=== PATIENT | male | born 2000 | race Caucasian/White ===

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

== ENCOUNTER 2018-10-18 03:59 | Observation (INO) | payer OTHER ==
[~2018-10-18] VITALS: Ht 177.8 cm; Wt 117.9 kg
[~2018-10-18 03:59] MED LIST changes: +ONDA8TAB13 PO
[2018-10-18] MEDS ORDERED: fentaNYL INJECTION 100 MCG/2 ML AMP IVP STA ×2 (04:09→04:46)
[2018-10-18] MEDS ORDERED: NS IV 1000 ML 1,000 ML IV STA (04:09)
[2018-10-18] MEDS ORDERED: KETOROLAC 30 MG/ML VIAL IVP STA (04:09)
[2018-10-18] MEDS ORDERED: ALBU2.5V4 NEB (04:10)
[2018-10-18] MEDS ORDERED: ONDANSETRON 4 MG/2 ML (SDV) Z0FRAN IVP ONE (04:15)
--- NOTE | 2018-10-18 04:15 | ED GU-Male ---
General Chief Complaint: -Male Stated Complaint: BACK PAIN Source: patient Exam Limitations: no limitations History of Present Illness Date Seen by Provider: Oct 18, 2018 Time Seen by Provider: 04:04 Initial Comments Here with report of right flank pain that started 1 hour ago and has persisted. He states he couldn't get comfortable. He realized that this felt like when he has kidney stone on the left and went ahead and came in for evaluation. Does report multiple with urination. Reports nausea but no vomiting or diarrhea. Denies fevers. Timing/Duration: this morning Severity/Quality: moderate, severe, aching, cramping Location: right flank Radiation: none Activities at Onset: sleep Prior Genitourinary Problems: similar symptoms Associated Symptoms: No abdominal pain, No dysuria, No fever/chills; lower back pain, nausea/vomiting; No urinary frequency Allergies and Home Medications Allergies Coded Allergies: NKANo Known Allergies (Verified Allergy, Unknown, 03/21/06) Patient Home Medication List Home Medication List Reviewed: Yes Review of Systems Review of Systems Constitutional: see HPI; No chills, No fever EENTM: no symptoms reported Respiratory: No cough, No short of breath Cardiovascular: no symptoms reported Gastrointestinal: No diarrhea; nausea; No vomiting Genitourinary: denies dysuria; flank pain Musculoskeletal: no symptoms reported Skin: no symptoms reported Past Cojdvpu-Xujpoo-Cijgga Hx Past Med/Social Hx: Reviewed Nursing Past Med/Soc Hx Patient Social History Alcohol Use: Denies Use Recreational Drug Use: No Smoking Status: Never a Smoker Recent Foreign Travel: No Contact w/Someone Who Travel: No Recent Hopitalizations: No Immunizations Up To Date Tetanus Booster (TDap): Less than 5yrs Date of Influenza Vaccine: Jul 14, 2016 Seasonal Allergies Seasonal Allergies: No Past Medical History Surgeries: Yes (lithotripsy) Respiratory: Yes Asthma, Chronic Bronchitis Cardiac: No Neurological: No Kidney Stones Gastrointestinal: No Musculoskeletal: No Endocrine: No Cancer: No Psychosocial: Yes (OCD) Blood Disorders: No Family Medical History Reviewed Nursing Family Hx No Pertinent Family Hx Physical Exam Vital Signs Vital Signs - First Documented 10/18/18 04:00 Temp 97.2 Pulse 64 Resp 18 B/P (MAP) 133/80 (97) Pulse Ox 98 O2 Delivery Room Air Capillary Refill : Height, Weight, BMI Height: 5'10.00" Weight: 260lbs. oz. 117.341099oa; 35.15 BMI Method:Stated General Appearance: WD/WN, no apparent distress Neck: full range of motion, supple Cardiovascular: regular rate, rhythm, no murmur Respiratory: lungs clear, normal breath sounds Gastrointestinal: non tender, soft Back: no vertebral tenderness, CVA tenderness (R); No CVA tenderness (L), No muscle spasm Extremities: normal range of motion, non-tender Neurologic/Psychiatric: alert, oriented x 3 Skin: normal color, warm/dry Progress/Results/Core Measures Suspected Sepsis SIRS Temperature: Pulse: Respiratory Rate: Laboratory Tests 10/18/18 04:20: White Blood Count 8.5 Blood Pressure / Mean: Laboratory Tests 10/18/18 04:20: Creatinine 0.84, Platelet Count 290, Total Bilirubin 0.3 Results/Orders Lab Results Laboratory Tests Test 10/18/18 04:15 10/18/18 04:20 Range/Units Urine Color YELLOW Urine Clarity CLEAR Urine pH 6 5-9 Urine Specific [place] 1.025 H 1.016-1.022 Urine Protein 2+ H NEGATIVE Urine Glucose (UA) NEGATIVE NEGATIVE Urine Ketones 1+ H NEGATIVE Urine Nitrite NEGATIVE NEGATIVE Urine Bilirubin NEGATIVE NEGATIVE Urine Urobilinogen NORMAL NORMAL MG/DL Urine Leukocyte Esterase 1+ H NEGATIVE Urine RBC (Auto) 5+ H NEGATIVE Urine RBC 2-5 H /HPF Urine WBC 0-2 /HPF Urine Squamous Epithelial Cells 0-2 /HPF Urine Crystals NONE /LPF Urine Bacteria TRACE /HPF Urine Casts NONE /LPF Urine Mucus MODERATE H /LPF Urine Culture Indicated NO White Blood Count 8.5 4.3-11.0 10^3/uL Red Blood Count 5.42 4.35-5.85 10^6/uL Hemoglobin 14.7 13.3-17.7 G/DL Hematocrit 44 40-54 % Mean Corpuscular Volume 80 80-99 FL Mean Corpuscular Hemoglobin 27 25-34 PG Mean Corpuscular Hemoglobin Concent 34 32-36 G/DL Red Cell Distribution Width 13.1 10.0-14.5 % Platelet Count 290 130-400 10^3/uL Mean Platelet Volume 10.0 7.4-10.4 FL Neutrophils (%) (Auto) 48 42-75 % Lymphocytes (%) (Auto) 39 12-44 % Monocytes (%) (Auto) 9 0-12 % Eosinophils (%) (Auto) 3 0-10 % Basophils (%) (Auto) 1 0-10 % Neutrophils # (Auto) 4.1 1.8-7.8 X 10^3 Lymphocytes # (Auto) 3.3 1.0-4.0 X 10^3 Monocytes # (Auto) 0.8 0.0-1.0 X 10^3 Eosinophils # (Auto) 0.3 0.0-0.3 10^3/uL Basophils # (Auto) 0.0 0.0-0.1 10^3/uL Sodium Level 140 135-145 MMOL/L Potassium Level 3.5 L 3.6-5.0 MMOL/L Chloride Level 105 98-107 MMOL/L Carbon Dioxide Level 24 21-32 MMOL/L Anion Gap 11 5-14 MMOL/L Blood Urea Nitrogen 12 7-18 MG/DL Creatinine 0.84 0.60-1.30 MG/DL Estimat Glomerular Filtration Rate > 60 BUN/Creatinine Ratio 14 Glucose Level 100 70-105 MG/DL Calcium Level 9.3 8.5-10.1 MG/DL Corrected Calcium 9.1 8.5-10.1 MG/DL Total Bilirubin 0.3 0.1-1.0 MG/DL Aspartate Amino Transf (AST/SGOT) 20 5-34 U/L Alanine Aminotransferase (ALT/SGPT) 30 0-55 U/L Alkaline Phosphatase 62 40-136 U/L Total Protein 7.4 6.4-8.2 GM/DL Albumin 4.3 3.2-4.5 GM/DL My Orders Orders - ELSIE ARRIAZA MD Cbc With Automated Diff (10/18/18 04:09) Comprehensive Metabolic Panel (10/18/18 04:09) Ua Culture If Indicated (10/18/18 04:09) Ct Abd/Pelvis Wo(Kidney Stone) (10/18/18 04:09) Saline Lock/Iv-Start (10/18/18 04:09) Fentanyl Injection (Sublimaze Injection (10/18/18 04:09) Ketorolac Injection (Toradol Injection) (10/18/18 04:09) Ondansetron Injection (Zofran Injectio (10/18/18 04:15) Ns Iv 1000 Ml (Sodium Chloride 0.9%) (10/18/18 04:09) Fentanyl Injection (Sublimaze Injection (10/18/18 04:46) Hydromorphone Injection (Dilaudid Inject (10/18/18 05:35) Abdomen/Kub 1view (10/18/18 05:47) Medications Given in ED Current Medications Medications Dose Ordered Sig/Radha Route Start Time Stop Time Status Last Admin Dose Admin Ondansetron HCl 4 mg ONCE ONCE IVP 10/18/18 04:15 10/18/18 04:16 DC 10/18/18 04:20 4 MG Vital Signs/I&O 10/18/18 10/18/18 10/18/18 04:00 04:20 04:21 Temp 97.2 97.2 97.2 Pulse 64 Resp 18 B/P (MAP) 133/80 (97) Pulse Ox 98 O2 Delivery Room Air Capillary Refill : Progress Note : Progress Note Seen and evaluated. IV, labs, UA, CT abdomen and pelvis kidney stone protocol, fentanyl 50 g IV, Toradol 30 mg IV and normal saline 1 L bolus ordered. Zofran 4 mg IV for nausea. Monitor patient. Repeat fentanyl 75 g IV for continued pain. 0540: Pain has returned and is worse again. Dilaudid 1 mg IV. I discussed the case with Dr. Salgado. He is recommending admission with pain control and fluids. We will keep nothing by mouth. Rocephin 1 g IV. 0545: I did discuss the case with Dr. Laird who accepts patient for admission, observation status with Dr. Salgado on consult. Patient and family agree with plan. Pain a little better after Dilaudid. Diagnostic Imaging Diagonstic Imaging: CT Plain Films/CT/US/NM/MRI: abdomen, pelvis Comments 3 mm calculus right proximal ureter just below the UPJ with mild fullness of the right renal collecting system. Bilateral nephrolithiasis. Departure Communication (Admissions) Time/Spoke to Admitting Phy: 05:45 Time/Spoke to Consulting Phy: 05:40 Impression Primary Impression: Right ureteral stone Disposition: ADMITTED INPATIENT Condition: Stable Admissions Decision to Admit Reason: Admit from ER (General) Decision to Admit/Date: Oct 18, 2018 Time/Decision to Admit Time: 05:40 Departure-Patient Inst. Referrals: JENNA BRUNO MD (PCP/Family) Primary Care Physician ELSIE ARRIAZA MD Oct 18, 2018 04:15
[2018-10-18 04:19] LABS: BILIRUBIN,URINE NEGATIVE (NEGATIVE); CLARITY,URINE CLEAR; COLOR,URINE YELLOW; GLUCOSE, URINE (UA) NEGATIVE (NEGATIVE); KETONES,URINE 1+ (NEGATIVE); LEUKOCYTE ESTERASE ,URINE 1+ (NEGATIVE); NITRITE,URINE NEGATIVE (NEGATIVE); PH,URINE 6 (5-9); PROTEIN,URINE 2+ (NEGATIVE); UROBILINOGEN,URINE NORMAL (NORMAL)
[2018-10-18 04:26] LABS: BACTERIA,URINE TRACE /HPF; SQUAMOUS EPITHELIAL CELL,UR 0-2 /HPF; WBC,URINE 0-2 /HPF
[2018-10-18 04:30] LABS: BASOPHILS % (AUTO) 1 % (0-10); EOSINOPHILS # (AUTO) 0.3 10^3/uL (0.0-0.3); EOSINOPHILS % (AUTO) 3 % (0-10); HEMATOCRIT 44 % (40-54); HEMOGLOBIN 14.7 G/DL (13.3-17.7); LYMPHOCYTES # (AUTO) 3.3 X 10^3 (1.0-4.0); LYMPHOCYTES % (AUTO) 39 % (12-44); MEAN CORPUSCULAR HEMOGLOBIN 27 PG (25-34); MEAN CORPUSCULAR HGB CONC 34 G/DL (32-36); MEAN CORPUSCULAR VOLUME 80 FL (80-99); MONOCYTES # (AUTO) 0.8 X 10^3 (0.0-1.0); MONOCYTES % (AUTO) 9 % (0-12); NEUTROPHILS # (AUTO) 4.1 X 10^3 (1.8-7.8); NEUTROPHILS % (AUTO) 48 % (42-75); PLATELET COUNT 290 10^3/uL (130-400); RED BLOOD COUNT 5.42 10^6/uL (4.35-5.85); RED CELL DISTRIBUTION WIDTH 13.1 % (10.0-14.5); WHITE BLOOD COUNT 8.5 10^3/uL (4.3-11.0)
[2018-10-18 04:46] LABS: ALANINE AMINOTRANSFERASE 30 U/L (0-55); ALBUMIN 4.3 GM/DL (3.2-4.5); ALKALINE PHOSPHATASE 62 U/L (40-136); BILIRUBIN,TOTAL 0.3 MG/DL (0.1-1.0); BUN/CREATININE RATIO 14; CALCIUM 9.3 MG/DL (8.5-10.1); CARBON DIOXIDE 24 MMOL/L (21-32); CHLORIDE 105 MMOL/L (98-107); CREATININE SERUM 0.84 MG/DL (0.60-1.30); GFR ESTIMATED > 60; GLUCOSE 100 MG/DL (70-105); POTASSIUM 3.5 MMOL/L (3.6-5.0); SODIUM 140 MMOL/L (135-145); TOTAL PROTEIN 7.4 GM/DL (6.4-8.2)
[2018-10-18] MEDS ORDERED: HYDROmorphone 2 MG/ML VIAL (DILAUDID) IV STA (05:35)
[2018-10-18] MEDS ORDERED: cefTRIAXone FOR IV USE 1,000 MG in NS (IVPB) 50 ML IV ONE (06:00)
--- OUTSIDE RECORDS SUMMARY | 2018-10-18 06:08 | XMS REPORT | Continuity of Care Document ---
Author Author [facility] Address Unknown Phone Unavailable Allergies Active Description Code Type Severity Reaction Onset Reported/Identified Relationship to Patient Clinical Status Yes NKANo Known Allergies NKA Miscellaneous Allergy Unknown N/A 03/21/2006 Medications There is no data. Problems Date Dx Coded Attending Type Code Diagnosis Diagnosed By 07/27/2010 JAIR BROWN DO 493.92 ASTHMA (ACUTE) EXACERBATION 07/27/2010 YLNN ZENDEJAS APRN 493.92 ASTHMA (ACUTE) EXACERBATION 07/27/2010 FRANSISCO MARQUES MD 493.92 ASTHMA (ACUTE) EXACERBATION 07/27/2010 MARK BARGER APRN 493.92 ASTHMA (ACUTE) EXACERBATION 07/27/2010 JAIR BROWN DO 493.92 ASTHMA (ACUTE) EXACERBATION 07/27/2010 FREDO AUGUSTIN PHD 493.92 ASTHMA (ACUTE) EXACERBATION 07/27/2010 FREDO AUGUSTIN PHD 493.92 ASTHMA (ACUTE) EXACERBATION 07/27/2010 493.92 ASTHMA (ACUTE ) EXACERBATION 07/27/2010 NETTIE ANSARI APRN 493.92 ASTHMA (ACUTE) EXACERBATION 07/27/2010 LETTY ZAIDI APRN 493.92 ASTHMA (ACUTE) EXACERBATION 07/27/2010 LAZARO VALERA, FRANSISCO E 493.92 ASTHMA (ACUTE) EXACERBATION 07/27/2010 LAZARO VALERA, FRANSISCO E 493.92 ASTHMA (ACUTE) EXACERBATION 09/07/2010 JAIR BROWN DO 465.9 UPPER RESPIRATORY INFECTION 09/07/2010 JAIR BROWN DO 493.90 ASTHMA UNSPECIFIED 09/07/2010 JAIR BROWN DO 786.2 COUGH 09/07/2010 VERITO ZENDEJAS APRNYL A 465.9 UPPER RESPIRATORY INFECTION 09/07/2010 VERITO ZENDEJAS APRNYL A 493.90 ASTHMA UNSPECIFIED 09/07/2010 VERITO ZENDEJAS APRNYL A 786.2 COUGH 09/07/2010 SHELLI MD, FRANSISCO 465.9 UPPER RESPIRATORY INFECTION 09/07/2010 SHELLI DORSEY, FRANSISCO 493.90 ASTHMA UNSPECIFIED 09/07/2010 SHELLI DORSEY, FRANSISCO 786.2 COUGH 09/07/2010 FROST CASHERO [employer]RI[employer] RETROFIT DESIGNER, MARK N 465.9 UPPER RESPIRATORY INFECTION 09/07/2010 FROST CASHERO INDUSTRIAL RETROFIT DESIGNER, MARK N 493.90 ASTHMA UNSPECIFIED 09/07/2010 FROST CASHERO INDUSTRIAL RETROFIT DESIGNER, MARK N 786.2 COUGH 09/07/2010 BROWN DO, [...] R 465.9 UPPER RESPIRATORY INFECTION 09/07/2010 ELAN INDUSTRIAL RETROFIT DESIGNER, NETTIE R 493.90 ASTHMA UNSPECIFIED 09/07/2010 ELAN INDUSTRIAL RETROFIT DESIGNER, NETTIE R 786.2 COUGH 09/07/2010 MADL INDUSTRIAL RETROFIT DESIGNER, LETTY L 465.9 UPPER RESPIRATORY INFECTION 09/07/2010 MADL INDUSTRIAL RETROFIT DESIGNER, LETTY L 493.90 ASTHMA UNSPECIFIED 09/07/2010 MADL INDUSTRIAL RETROFIT DESIGNER, LETTY L 786.2 COUGH 09/07/2010 LAZARO RN, FRANSISCO E 465.9 UPPER RESPIRATORY INFECTION 09/07/2010 LAZARO RN, FRANSISCO E 493.90 ASTHMA UNSPECIFIED 09/07/2010 LAZARO RN, FRANSISCO E 786.2 COUGH 09/07/2010 LAZARO VALERA, FRANSISCO E 465.9 UPPER RESPIRATORY INFECTION 09/07/2010 LAZARO VALERA, FRANSISCO E 493.90 ASTHMA UNSPECIFIED 09/07/2010 LAZARO VALERA, FRANSISCO E 786.2 COUGH 01/14/2012 Ot 913.4 INSECT BITE FOREARM 01/14/2012 Ot E000.8 OTHER EXTERNAL CAUSE STATUS 01/14/2012 Ot E906.4 NONVENOM ARTHROPOD BITE 07/20/2012 JAIR BROWN DO K 477.0 ALLERGIC RHINITIS DUE TO POLLEN 07/20/2012 CRISTIANA WYNN LYNN A 477.0 ALLERGIC RHINITIS DUE TO POLLEN 07/20/2012 FRANSISCO MARQUES MD 477.0 ALLERGIC RHINITIS DUE TO POLLEN 07/20/2012 MARK BARGER APRN N 477.0 ALLERGIC RHINITIS DUE TO POLLEN 07/20/2012 JAIR BROWN DO K 477.0 ALLERGIC RHINITIS DUE TO POLLEN 07/20/2012 DEMETRIA PHD, FREDO Ashton 477.0 ALLERGIC RHINITIS DUE TO POLLEN 07/20/2012 DEMETRIA MUSTAFA, FREDO Ashton 477.0 ALLERGIC RHINITIS DUE TO POLLEN 07/20/2012 477.0 ALLERGIC RHINITIS DUE TO POLLEN 07/20/2012 ELAN WYNN NETTIE R 477.0 ALLERGIC RHINITIS DUE TO POLLEN 07/20/2012 MADCINTHIA Fernandez APRNA L 477.0 ALLERGIC RHINITIS DUE TO POLLEN 07/20/2012 LAZARO VALERA, FRANSISCO E 477.0 ALLERGIC RHINITIS DUE TO POLLEN 07/20/2012 LAZARO VALERA, FRANSISCO E 477.0 ALLERGIC RHINITIS DUE TO POLLEN 09/26/2012 AISHWARYA BROWN DOA K 491.9 BRONCHITIS, CHRONIC UNSPEC 09/26/2012 AISHWARYA BROWN DOA K 786.07 WHEEZING 09/26/2012 VERITO ZENDEJAS APRNYL A 491.9 BRONCHITIS, CHRONIC UNSPEC 09/26/2012 VERITO ZENDEJAS APRNYL A 786.07 WHEEZING 09/26/2012 SHELLI DORSEY, FRANSISCO 491.9 BRONCHITIS, CHRONIC UNSPEC 09/26/2012 SHELLI DORSEY, FRANSISCO 786.07 WHEEZING 09/26/2012 MARK BARGER APRN N 491.9 BRONCHITIS, CHRONIC UNSPEC 09/26/2012 MARK BARGER APRN N 786.07 WHEEZING 09/26/2012 AISHWARYA BROWN DOA K 491.9 BRONCHITIS, CHRONIC UNSPEC 09/26/2012 BROWN AISHWARYA HEATHA K 786.07 WHEEZING 09/26/2012 DEMETRIA MUSTAFA, FREDO Ashton 491.9 BRONCHITIS, CHRONIC UNSPEC 09/26/2012 DEMETRIA MUSTAFA, FREDO Ashton 786.07 WHEEZING 09/26/2012 DEMETRIA MUSTAFA, FREDO Ashton 491.9 BRONCHITIS, CHRONIC UNSPEC 09/26/2012 DEMETRIA MUSTAFA, FREDO Ashton 786.07 WHEEZING 09/26/2012 491.9 BRONCHITIS, CHRONIC UNSPEC 09/26/2012 786.07 WHEEZING 09/26/2012 NETTIE ANSARI APRN R 491.9 BRONCHITIS, CHRONIC UNSPEC 09/26/2012 NETTIE ANSARI APRN R 786.07 WHEEZING 09/26/2012 MADL INDUSTRIAL RETROFIT DESIGNERLETTY Singh L 491.9 BRONCHITIS, CHRONIC UNSPEC 09/26/2012 CINTHIA ZAIDI APRNA L 786.07 WHEEZING 09/26/2012 LAZARO VALERA, FRANSISCO E 491.9 BRONCHITIS, CHRONIC UNSPEC 09/26/2012 LAZARO VALERA, FRANSISCO E 786.07 WHEEZING 09/26/2012 LAZARO VALERA, FRANSISCO E [...] SLIPPING, TRIPPING, OR STUMBLI 09/18/2013 SUNNY CORDOVA APRN Ot 493.90 ASTHMA, UNSPECIFIED 09/18/2013 SUNNY CORDOVA APRN Ot 786.2 COUGH 01/02/2014 MARK BARGER APRN 493.10 INTRINSIC ASTHMA UNSPECIFIED 01/02/2014 JAIR BROWN DO 493.10 ASTHMA INTRINSIC 01/02/2014 DEMETRIA MUSTAFA, FREDO Ashton 493.10 ASTHMA INTRINSIC 01/02/2014 DEMETRIA MUSTAFA, FREDO Ashton 493.10 ASTHMA INTRINSIC 01/02/2014 NETTIE ANSARI APRN 493.10 ASTHMA INTRINSIC 01/02/2014 LETTY ZAIDI APRN 493.10 ASTHMA INTRINSIC 01/02/2014 LAZARO VALERA, FRANSISCO E 493.10 ASTHMA INTRINSIC 01/02/2014 FRANSISCO WILLIS RN 493.10 ASTHMA INTRINSIC 04/16/2014 DEMETRIA MUSTAFA, FREDO Ashton 300.00 AN ANXIETY UNSPEC 04/16/2014 DEMETRIA MUSTAFA, FREDO Ashton 300.00 AN ANXIETY UNSPEC 04/16/2014 NETTIE ANSARI APRN R 300.00 AN ANXIETY UNSPEC 04/16/2014 LETTY ZAIDI APRN L 300.00 AN ANXIETY UNSPEC 04/16/2014 FRANSISCO WILLIS RN E 300.00 AN ANXIETY UNSPEC 04/16/2014 FRANSISCO WILLIS RN E 300.00 AN ANXIETY UNSPEC 07/17/2014 NETTIE ANSARI APRN R 558.9 GASTROENTERITIS NONINFECTIOUS 07/17/2014 LETTY ZAIDI APRN L 558.9 GASTROENTERITIS NONINFECTIOUS 07/17/2014 FRANSISCO WILLIS RN E 558.9 GASTROENTERITIS NONINFECTIOUS 07/17/2014 FRANSISCO WILLIS RN E 558.9 GASTROENTERITIS NONINFECTIOUS 07/25/2014 SLIM DORSEY, STEVE To Ot 599.70 HEMATURIA, UNSPECIFIED 07/25/2014 STEVE SMALLS MD Ot 719.45 JOINT PAIN-PELVIS 07/25/2014 STEVE SMALLS MD Ot 789.09 ABDOMINAL PAIN, OTHER SPECIFIED SITE 07/28/2014 LETTY ZAIDI APRN L 789.09 ABDOMINAL PAIN OTHER SPECIFIED SITE 07/28/2014 FRANSISCO WILLIS RN E 789.09 ABDOMINAL PAIN OTHER SPECIFIED SITE 07/28/2014 FRANSISCO WILLIS RN E 789.09 ABDOMINAL PAIN OTHER SPECIFIED SITE 07/29/2014 LETTY ZAIDI APRN L 590.2 KIDNEY STONES 07/29/2014 LETTY ZAIDI APRN L 591 HYDRONEPHROSIS 07/29/2014 FRANSISCO WILLIS RN E 590.2 KIDNEY STONES 07/29/2014 FRANSISCO WILLIS RN E 591 HYDRONEPHROSIS 07/29/2014 FRANSISCO WILLIS RN E 590.2 KIDNEY STONES 07/29/2014 FRANSISCO WILLIS RN E 591 HYDRONEPHROSIS 07/30/2014 RAMYA GASTON MD Ot 592.1 CALCULUS OF URETER 02/03/2017 DEJUANSHAHIDALETTY L POWER BRAKE REBUILDER Ot 592.0 CALCULUS OF KIDNEY 02/03/2017 MADCINTHIA FernandezA L POWER BRAKE REBUILDER Ot 592.1 CALCULUS OF URETER 02/03/2017 Ot [...] R10.32 LEFT LOWER QUADRANT PAIN 02/03/2017 BOYCE DO PAOLA L Ot Z87.442 PERSONAL HISTORY OF URINARY CALCULI 02/04/2017 LETTY ZAIDI POWER BRAKE REBUILDER Ot 592.0 CALCULUS OF KIDNEY 02/04/2017 LETTY ZAIDI POWER BRAKE REBUILDER Ot 592.1 CALCULUS OF URETER 02/04/2017 Ot [...] Z87.442 PERSONAL HISTORY OF URINARY CALCULI 06/05/2017 CARLI SAMUELS Ot F42.9 OBSESSIVE-COMPULSIVE DISORDER, UNSPECIFI 06/05/2017 CARLI SAMUELS Ot G43.909 MIGRAINE, UNSP, NOT INTRACTABLE, WITHOUT 06/05/2017 CARLI SAMUELS Ot J45.909 UNSPECIFIED ASTHMA, UNCOMPLICATED 06/05/2017 CARLI SAMUELS Ot R51 HEADACHE 06/05/2017 MADLLETTY L POWER BRAKE REBUILDER Ot 592.0 CALCULUS OF KIDNEY 06/05/2017 MADL, LETTY L POWER BRAKE REBUILDER Ot 592.1 CALCULUS OF URETER 06/05/2017 Ot 592.1 CALCULUS OF URETER 06/05/2017 RAMYA GASTON MD Ot 592.0 CALCULUS OF KIDNEY 06/05/2017 RAMYA GASTON MD Ot 592.1 CALCULUS OF URETER 06/05/2017 RAMYA GASTON MD Ot V72.63 PRE-PROCEDURAL LABORATORY EXAMINATION 06/05/2017 RAMYA GASTON MD Ot V74.8 SCREEN-BACTERIAL DIS NEC 01/03/2018 DEJUANSHAHIDALETTY L POWER BRAKE REBUILDER Ot 592.0 CALCULUS OF KIDNEY 01/03/2018 CINTHIA ZAIDIA L POWER BRAKE REBUILDER Ot 592.1 CALCULUS OF URETER 01/03/2018 Ot 592.1 CALCULUS OF URETER 01/03/2018 RAMYA GASTON MD Ot 592.0 CALCULUS OF KIDNEY 01/03/2018 RAMYA GASTON MD Ot 592.1 CALCULUS OF URETER 01/03/2018 RAMYA GASTON MD Ot V72.63 PRE-PROCEDURAL LABORATORY EXAMINATION 01/03/2018 RAMYA GASTON MD Ot V74.8 SCREEN-BACTERIAL DIS NEC 01/23/2018 CINTHIA ZAIDIA L POWER BRAKE REBUILDER Ot 592.0 CALCULUS OF KIDNEY 01/23/2018 DEJUAN LETTY L POWER BRAKE REBUILDER Ot 592.1 CALCULUS OF URETER 01/23/2018 Ot 592.1 CALCULUS OF URETER 01/23/2018 RAMYA GASTON MD Ot 592.0 CALCULUS OF KIDNEY 01/23/2018 RAMYA GASTON MD Ot 592.1 CALCULUS OF URETER 01/23/2018 RAMYA GASTON MD Ot V72.63 PRE-PROCEDURAL LABORATORY EXAMINATION 01/23/2018 RAMYA GASTON MD Ot V74.8 SCREEN-BACTERIAL DIS NEC Procedures Code [place] [address] NEBULIZER TREATMENT 09/26/2012 11625 OXIMETRY 08/22/2013 24140 OXIMETRY 09/18/2013 30242 OXIMETRY 02/18/2014 97877 PSYCH DIAGNOSTIC EVALUATION 04/17/2014 50181 PSYTX PT&/FAMILY 45 MINUTES 05/02/2014 UROLOGY RAMYA GASTON 07/28/2014 Results Test Result Range Complete urinalysis with reflex to culture - 02/03/17 22:30 Urine color determination JESU NRG Urine clarity determination SLIGHTLY CLOUDY NRG Urine pH measurement by test strip 7 5-9 Specific gravity of urine by test strip 1.010 1.016- 1.022 Urine protein assay by test strip, semi-quantitative [...] urinalysis with reflex to culture NO NRG Complete urinalysis with reflex to culture - 10/18/18 04:15 Urine color determination YELLOW NRG Urine clarity determination CLEAR NRG Urine pH measurement by test strip 6 5-9 Specific gravity of urine by test strip 1.025 1.016- 1.022 Urine protein assay by test strip, semi-quantitative 2+ NEGATIVE Urine glucose detection by automated test strip NEGATIVE NEGATIVE Erythrocytes detection in urine sediment by light microscopy 5+ NEGATIVE Urine ketones detection by automated test strip 1+ NEGATIVE Urine nitrite detection by test strip NEGATIVE NEGATIVE Urine total bilirubin detection by test strip NEGATIVE NEGATIVE Urine urobilinogen measurement by automated test strip (mass/volume) NORMAL NORMAL Urine leukocyte esterase detection by dipstick 1+ NEGATIVE Automated urine sediment erythrocyte count by microscopy (number/high power field) [HPF] NRG Automated urine sediment leukocyte count by microscopy (number/high power field ) [HPF] NRG Bacteria detection in urine sediment by light microscopy TRACE NRG Squamous epithelial cells detection in urine sediment by light microscopy 0-2 NRG Crystals detection in urine sediment by light microscopy NONE NRG Casts detection in urine sediment by light microscopy NONE NRG Mucus detection in urine sediment by light microscopy MODERATE NRG Complete urinalysis with reflex to culture NO NRG Complete blood count (CBC) with automated white blood cell (WBC) differential - 10/18/18 04:20 Blood leukocytes automated count (number/volume) 8.5 10*3/uL 4.3-11.0 Blood erythrocytes automated count (number/volume) 5.42 10*6/uL 4.35-5.85 Venous blood hemoglobin measurement (mass/volume) 14.7 g/dL 13.3-17.7 Blood hematocrit (volume fraction) 44 % 40-54 Automated erythrocyte mean corpuscular volume 80 [foz_us] 80-99 Automated erythrocyte mean corpuscular hemoglobin (mass per erythrocyte) 27 pg 25-34 Automated erythrocyte mean corpuscular hemoglobin concentration measurement ( mass/volume) 34 g/dL 32-36 Automated erythrocyte distribution width ratio 13.1 % 10.0-14.5 Automated blood platelet count (count/volume) 290 10*3/uL 130-400 Automated blood platelet mean volume measurement 10.0 [foz_us] 7.4-10.4 Automated blood neutrophils/100 leukocytes 48 % 42-75 Automated blood lymphocytes/100 leukocytes 39 % 12-44 Blood monocytes/100 leukocytes 9 % 0-12 Automated blood eosinophils/100 leukocytes 3 % 0-10 Automated blood basophils/100 leukocytes 1 % 0-10 Blood neutrophils automated count (number/volume) 4.1 10*3 1.8-7.8 Blood lymphocytes automated count (number/volume) 3.3 10*3 1.0-4.0 Blood monocytes automated count (number/volume) 0.8 10*3 0.0-1.0 Automated eosinophil count 0.3 10*3/uL 0.0-0.3 Automated blood basophil count (count/volume) 0.0 10*3/uL 0.0-0.1 Comprehensive metabolic panel - 10/18/18 04:20 Serum or plasma sodium measurement (moles/volume) 140 mmol/L 135-145 Serum or plasma potassium measurement (moles/volume) 3.5 mmol/L 3.6-5.0 Serum or plasma chloride measurement (moles/volume) 105 mmol/L 98-107 Carbon dioxide 24 mmol/L 21-32 Serum or plasma anion gap determination (moles/volume) 11 mmol/L 5-14 Serum or plasma urea nitrogen measurement (mass/volume) 12 mg/dL 7-18 Serum or plasma creatinine measurement (mass/volume) 0.84 mg/dL 0.60-1.30 Serum or plasma urea nitrogen/creatinine mass ratio 14 NRG Serum or plasma creatinine measurement with calculation of estimated glomerular filtration rate > NRG Serum or plasma glucose measurement (mass/volume) 100 mg/dL 70-105 Serum or plasma calcium measurement (mass/volume) 9.3 mg/dL 8.5-10.1 Serum or plasma total bilirubin measurement (mass/volume) 0.3 mg/dL 0.1-1.0 Serum or plasma alkaline phosphatase measurement (enzymatic activity/volume) 62 U/L 40-136 Serum or plasma aspartate aminotransferase measurement (enzymatic activity/ volume) 20 U/L 5-34 Serum or plasma alanine aminotransferase measurement (enzymatic activity/volume ) 30 U/L 0-55 Serum or plasma protein measurement (mass/volume) 7.4 g/dL 6.4-8.2 Serum or plasma albumin measurement (mass/volume) 4.3 g/dL 3.2-4.5 CALCIUM CORRECTED 9.1 mg/dL 8.5-10.1 Encounters ACCT No. Visit Date/Time Discharge Status Pt. Type Provider Facility Loc./Unit Complaint [id number] 09/17/2014 00:00:00 09/17/2014 23:59:59 CLS Outpatient FRANSISCO WILLIS RN [id number] 07/28/2014 13:55:00 07/28/2014 23:59:59 CLS Outpatient LETTY ZAIDI APRN [id number] 07/17/2014 13:41:00 07/17/2014 23:59:59 CLS Outpatient NETTIE ANSARI APRN [id number] 07/17/2014 00:00:00 07/17/2014 23:59:59 CLS Outpatient FRANSISCO WILLIS RN [id number] 05/02/2014 10:12:00 05/02/2014 23:59:59 CLS Outpatient DEMETRIA MUSTAFA, FREDO Ashton [id number] 04/16/2014 09:05:00 04/16/2014 23:59:59 CLS Outpatient DEMETRIA MUSTAFA, FREDO [place] [id number] 02/18/2014 11:42:00 02/18/2014 23:59:59 CLS Outpatient BROWN JAIR [id number] 01/02/2014 15:09:00 01/02/2014 23:59:59 CLS Outpatient MARGOT SANTIAGO APRN MARK N [id number] 09/18/2013 15:25:00 09/18/2013 23:59:59 CLS Outpatient FRANSISCO MARQUES MD [id number] 08/21/2013 15:23:00 08/21/2013 23:59:59 CLS Outpatient LYNN ZENDEJAS APRN [id number] 09/26/2012 09:32:00 09/26/2012 23:59:59 CLS Outpatient KEVIN HEATH JAIR K [id number] 09/26/2012 09:32:00 09/26/2012 23:59:59 CLS Outpatient [id number] 06/05/2017 10:47:00 06/05/2017 13:52:00 DIS Emergency CARLI SAMUELS [facility] ER HEAD ACHE [id number] 02/03/2017 22:02:00 02/03/2017 23:10:00 DIS Emergency PAOLA BOYCE DO [facility] ER LEFT LOWER BACK PAIN [id number] 10/13/2015 15:41:00 10/13/2015 23:59:59 CLS Outpatient SHRUTHI RESENDIZ APRN [facility] QUICK ANKLE PAIN/ SWELLING [id number] 07/30/2014 06:33:00 07/30/2014 10:15:00 DIS Outpatient RAMYA GASTON MD [facility] SDC RIGHT URETERAL STONE [id number] 07/29/2014 14:06:00 07/29/2014 23:59:59 CLS Outpatient RAMYA GASTON MD [facility] PREOP RIGHT URETERAL STONE [id number] 07/28/2014 16:33:00 07/28/2014 23:59:59 CLS Outpatient LETTY ZAIDI POWER BRAKE REBUILDER [facility] RAD ABD PAIN,FLANK PAIN [id number] 07/25/2014 04:36:00 07/25/2014 06:26:00 DIS Emergency SLIM DORSEY, STEVE To [facility] ER RT SIDE HIP PAIN [id number] 09/18/2013 12:44:00 09/18/2013 14:15:00 DIS Emergency SUNNY CORDOVA APRN [facility] ER COUGH/CONGESTION [id number] 09/06/2013 08:53:00 09/06/2013 10:08:00 DIS Emergency ROWDY DORSEY, ADALBERTO Guillen [facility] ER FALL [id number] 10/18/2018 05:45:00 ACT Inpatient KIANA DORSEY, JENNA Ashton [facility] 4TH RIGHT UPJ STONE [id number] 01/03/2018 10:04:00 Document Registration [id number] 01/03/2018 10:04:00 Document Registration [id number] 01/03/2018 10:04:00 Document Registration [id number] 07/29/2014 12:14:00 Document Registration [id number] 11/08/2012 01:45:00 Document Registration [id number] 01/14/2012 15:32:00 Document Registration [id number] 08/18/2017 13:20:00 08/18/2017 23:59:59 CLS Outpatient ABBY ARCHULETA [facility]
--- OUTSIDE RECORDS SUMMARY | 2018-10-18 06:08 | XMS REPORT ---
Author Author SURI VALIENTE [facility] Address [address] [place] [address] Care Team Providers Care Liquor Store Manager Name Role Phone SURI VALIENTE Unavailable PROBLEMS Type Condition ICD9-CM Code EXR36-XM Code Onset Dates Condition Status SNOMED Code Problem Asthma 493.90 Active 610225252 Problem Anxiety state, unspecified 300.00 Active 095487044 Problem Intrinsic asthma, unspecified 493.10 Active 551585896 Problem Hydronephrosis 591 Active 86037526 Problem Allergic rhinitis due to pollen 477.0 Active 28477637 Problem Unspecified chronic bronchitis 491.9 Active 06813261 ALLERGIES No Known Allergies ENCOUNTERS Encounter Location Date Diagnosis [facility] [id number] [place] [phone] Aug, Sore throat J02.9 ; Myalgia M79.1 and Otalgia of left ear H92.02 [facility] [address] [id number] Apr, Visit for dental examination Z01.20 [id number] [place] [address] 03 Dec, 2015 TMJ arthralgia M26.62 ; Dental caries K02.9 and Bruxism F45.8 [facility] [id number] [place] [address] Oct, Viral upper respiratory tract infection J06.[address] [address] Sep, Encounter for immunization Z23 [facility] [address] [place] [address] May, Asthma 493.90 [facility] [place] [facility] [address] [id number] [place] [address] 14 Feb, 2015 [facility] [place] [facility] [address] [id number] [place] [address] 13 Feb, 2015 [facility] [place] [facility] [address] [id number] [place] [address] 05 Sep, 2014 [facility] [place] [facility] [address] [id number] [place] [address] 05 Sep, 2014 [facility] [place] [facility] [address] [id number] [place] [address] Aug, [facility] [place] [facility] [address] [id number] [place] [address] 29 Aug, 2014 [facility] [place] [facility] [address] [id number] [place] [address] 8685 17 Jul, 2014 [facility] [place] [facility] [address] [id number] [place] [address] 17 Jul, 2013 [facility] [place] [facility] [address] [id number] [place] [address] 16 Jul, 2014 [facility] [place] [facility] [address] [id number] [place] [address] 16 Jul, 2013 [facility] [place] [facility] [address] [id number] [place] [address] 15 Jul, 2013 [facility] [place] [facility] [address] [id number] [place] [address] 15 Jul, 2013 [facility] [place] [facility] [address] [id number] [place] [address] 09 Sep, 2013 [facility] [place] [facility] [address] [id number] [place] [address] 09 Sep, 2013 [facility] [place] [facility] [address] [id number] [place] [address] 04 Sep, 2013 [facility] [place] [facility] [address] [id number] [place] [address] Jul, [facility] [place] [facility] [address] [id number] [place] [address] Jul, [facility] [place] [facility] [address] [id number] [place] [address] Jul, [facility] [place] [facility] [address] [id number] [place] [address] May, [facility] [place] [facility] [address] [id number] [place] [address] May, [facility] [place] [facility] [address] [id number] [place] [address] May, [facility] [place] [facility] [address] [id number] [place] [address] May, [facility] [place] [facility] [address] [id number] [place] [address] Apr, [facility] [place] [facility] [address] [id number] [place] [address] Apr, [facility] [place] [facility] [address] [id number] [place] [address] Apr, [facility] [place] [facility] [address] [id number] [place] [address] 97[address] Apr, [facility] [place] [facility] [address] [id number], [place] [address] Feb, [facility] [place] [facility] [address] [id number], [place] [address] Feb, [facility] [place] [facility] [address] [id number] [place] [address] Dec, [facility] [place] [facility] [address] [id number] [place] [address] Dec, [facility] [place] [facility] [address] [id number] [place] [address] Sep, [facility] [place] [facility] [address] [id number] [place] [address] 06 Sep, 2013 [facility] [address] [id number] [place] [address] Sep, [facility] [place] [facility] [address] [id number] [place] Sep, [facility] [address] [id number] [place] [address] Aug, [facility] [place] [facility] [address] [id number] [place] [address] Aug, [facility] [address] [id number] [place] [address] 69[address] Aug, [facility] [address] [id number] [place] [address] Aug, [facility] [address] [id number] [place] [address] 18[address] Jul, [facility] [address] [id number] [place] [address] Oct, [facility] [place] [facility] [address] [id number] [place] [address] 28 Oct, 2012 [facility] [address] [id number] [place] [address] 27 Sep, 2012 [facility] [place] [facility] [address] [id number] [place] [address]- [address] 14 Sep, 2012 [facility] [place] [facility] [address] [id number] [place] [address] 14 Sep, 2012 [facility] [place] [facility] [address] [id number] [place] [address]- 56[address] 07 Jul, 2012 [facility] [place] [facility] [address] [id number] [place] [address] 07 Oct, 2011 [facility] [place] [facility] [address] [id number] [place] [address]- 4768 Sep, [facility] [address] [id number], [place] [address] Sep, [facility] [address] [id number], [place] [address] Sep, [facility] [address] [id number], [place] [address] Aug, [facility] [address] [id number], [place] [address] Aug, [facility] [address] [id number], [place] [address] Aug, [facility] [address] [id number], [place] [address] Aug, [facility] [address] [id number], [place] [address] Jul, IMMUNIZATIONS No Known Immunizations SOCIAL HISTORY Never Assessed REASON FOR VISIT Sore throat/ ear pain bilat x 2 days 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 PLAN OF CARE Activity Details Follow Up prn Reason: VITAL SIGNS Height 68.3 in 2017-08-18 Weight 259.8 lbs 2017-08-18 Temperature 97.6 degrees Fahrenheit 2017-08-18 Heart Rate 80 bpm 2017-08-18 Respiratory Rate 18 2017-08-18 BMI 39.15 kg/m2 2017-08-18 Blood pressure systolic 120 mmHg 2017-08-18 Blood pressure diastolic 72 mmHg 2017-08-18 MEDICATIONS No Known Medications RESULTS Name Result Date Reference Range STREP A (IN HOUSE) 2017-08-18 STREP A negative Control + Lot # [id number] Exp date 08/12/2018 PROCEDURES Procedure Date Ordered Result Body Site STREP A ASSAY W/OPTIC Aug 18, 2017 INSTRUCTIONS MEDICATIONS ADMINISTERED No Known Medications MEDICAL (GENERAL) HISTORY Type Description Date Medical History asthma Medical History chronic bronchitis Medical History kidney stones Medical History obsessive-compulsive personality disorder Medical History Renal and perinephric abscess Medical History Renal and perinephric abscess Surgical History lithotripsy 2013
[2018-10-18] MEDS ORDERED: NS IV 1000 ML 1,000 ML ONE (06:35)
[2018-10-18] MEDS ORDERED: CATHETER FLUSH 10 ML SYR IV PRN (07:00)
[2018-10-18] MEDS ORDERED: HYDROmorphone 2 MG/ML VIAL (DILAUDID) IV PRN (07:00)
[2018-10-18] MEDS ORDERED: KETOROLAC 30 MG/ML VIAL IV PRN (07:00)
--- NOTE | 2018-10-18 07:00 | Diagnostic Imaging Report ---
PROCEDURE: CT urinary tract, rule out kidney stone. TECHNIQUE: Multiple contiguous axial images were obtained through the abdomen and pelvis without the use of intravenous contrast. INDICATION: Right lower back pain CORRELATION STUDY: 02/03/2017 FINDINGS: LOWER THORAX: Clear. LIVER: Unremarkable. GALLBLADDER: Present and unremarkable. No bile duct dilatation. SPLEEN: Unremarkable. PANCREAS: Unremarkable. ADRENAL GLANDS: Unremarkable. KIDNEYS: There is presence of punctate nonobstructing bilateral intrarenal calculi present. There is approximately 3 mm calculus at the proximal right ureter just below the ureteropelvic junction. There is mild fullness of the right renal collecting system. ABDOMINAL AORTA: Unremarkable, nonaneurysmal. GASTROINTESTINAL TRACT: No obstruction or inflammation. Normal appendix. URINARY BLADDER: Relatively decompressed. REPRODUCTIVE: Unremarkable. OSSEOUS STRUCTURES: No acute abnormality. OTHER: None. IMPRESSION: 1. A 3 mm calculus proximal right ureter just below the ureteropelvic junction with mild fullness right renal collecting system. 2. Additional punctate nonobstructing bilateral intrarenal calculi. A preliminary report was provided by [facility]. Dictated by: Dictated on workstation # [id number]
--- NOTE | 2018-10-18 07:11 | Diagnostic Imaging Report ---
INDICATION: History of kidney stones. TECHNIQUE: Single supine view of the abdomen 6:22 AM CORRELATION STUDY: 07/30/2014 FINDINGS: Moderate amount of overlying bowel gas and stool obscures detail. There is, however, suggested a very small punctate calcification just lateral to the approximately L3-L4 level with a small proximal ureteral stone would be difficult to exclude. Osseous structures unremarkable. IMPRESSION: 1. Question of potential tiny 2-3 mm calcification just lateral to the right L3-L4 vertebral body plane could reflect a potential stone in the proximal ureter. If further assessment is desired, correlation to renal colic CT imaging recommended. Dictated by: Dictated on workstation # [id number]
[2018-10-18] MEDS: NS IV 1000 ML 1,000 ML IV SCH ×3 (07:35→22:34)
[2018-10-18 08:00] VITALS: BP 126/70
[2018-10-18] MEDS ORDERED: NIAC500T24 PO (08:53)
[2018-10-18] MEDS ORDERED: ASCO500T6 PO (08:53)
[2018-10-18] MEDS ORDERED: NFBIOT1000 PO (08:53)
[2018-10-18] MEDS ORDERED: RT-ALBUINH INH (08:54)
[2018-10-18] MEDS ORDERED: cefTRIAXone 1 GM/NS 50 ML IVPB IV SCH ×2 (09:00)
--- NOTE | 2018-10-18 10:49 | Short Stay Summary-Hospitalist ---
History of Present Illness HPI/Chief Complaint Pt is a 18yoCM with a history of recurrent kidney stones who presented to the ER due to back pain. He states the pain woke him from sleep at 4am and was on the right side of his back. He states it felt similar to his previous kidney stones. 3mm stone just below the right UPJ was noted on CT with multiple other intrarenal stones found bilaterally. On arrival he had severe pain requiring parental medication to control his symptoms and so he was admitted for observation and Urology consultation. Date Seen 10/18/18 Time Seen by a Provider: 09:30 Attending Physician Michele Dias MD PCP Mihcele Dias MD Referring Physician Date of Admission Oct 18, 2018 at 05:45 Home Medications & Allergies Home Medications Reviewed patient Home Medication Reconciliation performed by pharmacy medication reconciliations optoelectronic technician and/or nursing. Patients Allergies have been reviewed. Allergies Allergies Coded Allergies NKANo Known Allergies (Verified Allergy, Unknown, 03/21/06) Past Ryhgrhm-Ppvhxj-Rpaqbp Hx Past Med/Social Hx: Reviewed Nursing Past Med/Soc Hx Patient Social History Alcohol Use: Denies Use Recreational Drug Use: No Smoking Status: Never a Smoker 2nd Hand Smoke Exposure: No Physical Abuse Screen: No Sexual Abuse: No Recent Foreign Travel: No Contact w/other who traveled: No Recent Hopitalizations: No Recent Infectious Disease Expo: No Immunizations Up To Date Tetanus Booster (TDap): Less than 5yrs Date of Influenza Vaccine: Sep 27, 2018 Seasonal Allergies Seasonal Allergies: No Past Medical History Genitourinary: Kidney Stones Did You Recieve Any Treatments: No History of Blood Disorders: No Family History Reviewed Nursing Family Hx No Pertinent Family Hx Review of Systems Constitutional: No chills, No fever EENTM: No blurred vision, No double vision, No nose congestion, No throat pain Respiratory: No cough, No dyspnea on exertion, No short of breath Cardiovascular: No chest pain, No edema, No palpitations Gastrointestinal: No abdominal pain, No constipation, No diarrhea, No nausea, No vomiting Genitourinary: see HPI Musculoskeletal: back pain Skin: No lesions, No rash Psychiatric/Neurological: Denies Headache, Denies Numbness, Denies Tingling Physical Exam Physical Exam Vital Signs Vital Signs - First Documented 10/18/18 04:00 Temp 97.2 Pulse 64 Resp 18 B/P (MAP) 133/80 (97) Pulse Ox 98 O2 Delivery Room Air Capillary Refill : Less Than 3 Seconds Height, Weight, BMI Height: 5'10.00" Weight: 260lbs. 0.0oz. 117.094051jm; 37.3 BMI Method:Stated General Appearance: No Apparent Distress, WD/WN HEENT: PERRL/EOMI, Moist Mucous Membranes Neck: Non Tender, Supple Respiratory: Lungs Clear, No Respiratory Distress Cardiovascular: Regular Rate, Rhythm, No Murmur Gastrointestinal: Normal Bowel Sounds, Non Tender, Soft Extremity: Normal Capillary Refill, No Calf Tenderness Neurologic/Psychiatric: Alert, Oriented x3, Normal Mood/Affect Skin: Normal Color, Warm/Dry Results Results/Procedures Labs Patient resulted labs reviewed. Imaging: Reviewed Imaging Report Short Stay Diagnosis Discharge Diagnosis-Short Stay Admission Diagnosis Right UPJ Stone Final Discharge Diagnosis Above Conclusion Plan Right UPJ stone urology consulted, appreciate recs Transition to oral pain meds when able to PO Can DC home today if ok with Urology LOC DURAN MD Oct 18, 2018 10:49
[2018-10-18 12:00] VITALS: BP 133/67
--- NOTE | 2018-10-18 12:17 | CONSULTATION REPORT ---
DATE OF SERVICE: 10/18/2018 ATTENDING PHYSICIAN: Dr. Dias. SUMMARY: After reviewing the patient's record at the hospital, at the office and his x-rays, this is a 18-year-old white man with history of urolithiasis, whom I took care of for about 4 or 5 years ago with [facility]. He was lost for followup after 2013. Since then, he has passed two stones on his own. He presented to the emergency room complaining of severe right flank pain and nausea and vomiting. He had a CT and KUB, which showed a 3 mm stone in the proximal right ureter at the level of L3-L4 with mild hydronephrosis and punctate small bilateral renal stones. His pain was not well controlled and he was subsequently admitted for pain management after Dr. Espinosa talked to me. The patient denies any other complaints. REVIEW OF SYSTEMS: Negative otherwise. ALLERGIES: The patient has no known drug allergies. SURGERY: Mostly related to his stones. MEDICAL INDICES: Asthma and chronic bronchitis. MEDICATIONS: Per list. SOCIAL HISTORY: No smoking, no alcohol, no drugs. PHYSICAL EXAMINATION: VITAL SIGNS: Per chart. GENERAL: Well-nourished, well-developed in no acute distress at the time of my examination. HEENT: Head is normocephalic. ENT is unremarkable. NECK: Supple. No bruits. CHEST: Clear, nontender. HEART: Regular rate and rhythm, no murmur. ABDOMEN: Soft. There is very mild right CVA tenderness. EXTREMITIES: Lower extremity, no edema or cyanosis. NEUROLOGIC EXAM: Grossly intact. Oriented x3. IMPRESSION: 1. Right proximal ureteral stone with pain and mild obstruction. 2. Bilateral renal stones. 3. History of urolithiasis. 4. Chronic bronchitis and asthma. RECOMMENDATION: I discussed options with the patient and we decided to observe for spontaneous passage, since the stone is small and he has a history of passing stones on his own lately. We are going to go ahead and give him diet as tolerated. We will keep him n.p.o. after midnight just in case. Get a KUB in the morning. I told him to first try oral pain medicine. If it does not help, to take the parenteral one, but if the oral one helps him, he could be dismissed tomorrow on oral medication I mean lot of fluids especially caffeinated stuff. Strain all urine and follow up at the office next week. If he does not pass the stone or has any problem, then we will proceed with surgery according to the level of the stone. The plan of surgery was explained to the patient and all of his questions were answered. Job ID: [id number] DocumentID: [id number] Dictated Date: 10/18/2018 11:53:41 Corncob Pipes Assembler Date: 10/18/2018 12:16:38 Dictated By: RAMYA GASTON MD
[2018-10-18] MEDS: HYDROcodone/APAP 5 MG/325 MG (LORTAB) TAB PO PRN ×2 (14:01→18:15)
[2018-10-18 16:15] VITALS: BP 127/77
[2018-10-18] MEDS: ONDANSETRON 4 MG/2 ML (SDV) Z0FRAN IV PRN (18:14)
[2018-10-18 20:45] VITALS: BP 128/69
[2018-10-18 23:01] VITALS: BP 136/80
[2018-10-19] MEDS: HYDROcodone/APAP 5 MG/325 MG (LORTAB) TAB PO PRN ×2 (03:59→08:06)
[2018-10-19] MEDS: ONDANSETRON 4 MG/2 ML (SDV) Z0FRAN IV PRN (04:04)
[2018-10-19 04:17] VITALS: BP 122/73
[2018-10-19 06:01] LABS: BASOPHILS % (AUTO) 0 % (0-10); EOSINOPHILS # (AUTO) 0.1 10^3/uL (0.0-0.3); EOSINOPHILS % (AUTO) 1 % (0-10); HEMATOCRIT 41 % (40-54); HEMOGLOBIN 13.6 G/DL (13.3-17.7); LYMPHOCYTES # (AUTO) 1.5 X 10^3 (1.0-4.0); LYMPHOCYTES % (AUTO) 17 % (12-44); MEAN CORPUSCULAR HEMOGLOBIN 27 PG (25-34); MEAN CORPUSCULAR HGB CONC 33 G/DL (32-36); MEAN CORPUSCULAR VOLUME 81 FL (80-99); MEAN PLATELET VOLUME 10.5 FL (7.4-10.4); MONOCYTES % (AUTO) 10 % (0-12); NEUTROPHILS # (AUTO) 6.6 X 10^3 (1.8-7.8); NEUTROPHILS % (AUTO) 72 % (42-75); PLATELET COUNT 217 10^3/uL (130-400); RED BLOOD COUNT 5.04 10^6/uL (4.35-5.85); RED CELL DISTRIBUTION WIDTH 12.9 % (10.0-14.5); WHITE BLOOD COUNT 9.2 10^3/uL (4.3-11.0)
[2018-10-19 06:23] LABS: BUN/CREATININE RATIO 9; CALCIUM 8.6 MG/DL (8.5-10.1); CARBON DIOXIDE 17 MMOL/L (21-32); CHLORIDE 107 MMOL/L (98-107); CREATININE SERUM 0.88 MG/DL (0.60-1.30); GFR ESTIMATED > 60; GLUCOSE 89 MG/DL (70-105); POTASSIUM 3.8 MMOL/L (3.6-5.0); SODIUM 135 MMOL/L (135-145)
[2018-10-19] MEDS: NS IV 1000 ML 1,000 ML IV SCH (06:49)
--- NOTE | 2018-10-19 07:37 | Diagnostic Imaging Report ---
INDICATION: Kidney stone COMPARISON: 10/18/2018 FINDINGS: Single view of the abdomen demonstrates nondistended bowel gas pattern. The previously described calcification on the right is no longer identified and may have passed. IMPRESSION: No renal calculi are identified on today's series. Dictated by: Dictated on workstation # [id number]
[2018-10-19 08:00] VITALS: BP 118/76
[2018-10-19] MEDS ORDERED: cefTRIAXone 1 GM/NS 50 ML IVPB IV SCH ×2 (09:00)
[2018-10-19] MEDS ORDERED: ACHD5005 PO (09:41)
[2018-10-19] MEDS ORDERED: CEPH-507 PO (09:41)
--- NOTE | 2018-10-19 09:56 | Progress Note-Urology ---
Progress Note-Urology Progress Notes/Assess & Plan Progress/Assessment & Plan FEELING WELL. NO PAIN. KUB UNABLE TO SEE STONE. OK TO DISCHARGE WITH INSTRUCTIONS. SEE ME NEXT WEEK Final Diagnosis RT URETERAL STONE RAMYA GASTON MD Oct 19, 2018 09:56
--- NOTE | 2018-10-19 09:59 | Discharge Inst-Simple/Standard ---
Discharge Inst-Standard Discharge Medications New, Converted or Re-Newed RX: Transmitted to Pharmacy Patient Instructions/Follow Up Plan of Care/Instructions/FU: Please continue to take your medications as written. Please follow up with Dr Salgado and Dr Dias as recommended. Please continue to push IV fluids and strain your urine and see Dr Salgado next week. Activity as Tolerated: Yes Discharge Diet: No Restrictions Return to The Hospital For: Worsening pain, fever, if you feel you are getting worse. Planned Outpatient Orders/Ref. Pneu Vac Indicated: Yes LOC DURAN MD Oct 19, 2018 09:54
[2018-10-19 11:30] VITALS: BP 118/76
== END 2018-10-19 10:00 | disposition home or self-care (01) ==
LOC: EDUNIT# 03:59 → ER 04:00 → UNDOADMOB 05:45 → 4TH 05:45
PROVIDERS: ADMIT Internal Medicine; ATTEND Internal Medicine
DX: N20.1 Calculus of ureter (principal); N13.9 Obstructive and reflux uropathy, unspecified; N20.0 Calculus of kidney; J44.9 Chronic obstructive pulmonary disease, unspecified
CPT/HCPCS: 36415; 74018; 74176; 80048; 80053; 81000; 85025

== ENCOUNTER → 2018-10-24 | Outpatient (CLI) | payer OTHER ==
[~2018-10-24] MED LIST changes: +ACHD5005 PO; +ALBU2.5V4 NEB; +ASCO500T6 PO; +CEPH-507 PO; +NFBIOT1000 PO; +NIAC500T24 PO; +RT-ALBUINH INH
[2018-10-24 17:12] LABS: BUN/CREATININE RATIO 20; CARBON DIOXIDE 22 MMOL/L (21-32); CHLORIDE 105 MMOL/L (98-107); GFR ESTIMATED > 60; GLUCOSE 85 MG/DL (70-105); PHOSPHORUS 4.7 MG/DL (2.3-4.7); POTASSIUM 3.7 MMOL/L (3.6-5.0); SODIUM 139 MMOL/L (135-145); URIC ACID 7.9 MG/DL (2.6-7.2)
== END ==
LOC: LAB 16:31
PROVIDERS: ATTEND Urology
DX: N20.1 Calculus of ureter (principal)
CPT/HCPCS: 36415; 80048; 83970; 84100; 84550

== ENCOUNTER 2019-12-02 15:09 | Emergency (ER) | payer OTHER ==
[~2019-12-02] VITALS: Ht 172 cm; Wt 129.5 kg
[2019-12-02 16:11] LABS: BILIRUBIN,URINE NEGATIVE (NEGATIVE); CLARITY,URINE CLEAR; COLOR,URINE YELLOW; GLUCOSE, URINE (UA) NEGATIVE (NEGATIVE); KETONES,URINE NEGATIVE (NEGATIVE); LEUKOCYTE ESTERASE ,URINE NEGATIVE (NEGATIVE); NITRITE,URINE NEGATIVE (NEGATIVE); PH,URINE 6.5 (5-9); PROTEIN,URINE NEGATIVE (NEGATIVE)
[2019-12-02] MEDS ORDERED: KETOROLAC 30 MG/ML VIAL IVP ONE (16:15)
[2019-12-02] MEDS ORDERED: NS IV 1000 ML 1,000 ML IV SCH (16:15)
[2019-12-02 16:27] LABS: BASOPHILS % (AUTO) 0 % (0-10); EOSINOPHILS # (AUTO) 0.2 10^3/uL (0.0-0.3); EOSINOPHILS % (AUTO) 4 % (0-10); HEMATOCRIT 42 % (40-54); HEMOGLOBIN 14.2 G/DL (13.3-17.7); LYMPHOCYTES # (AUTO) 1.8 X 10^3 (1.0-4.0); LYMPHOCYTES % (AUTO) 26 % (12-44); MEAN CORPUSCULAR HEMOGLOBIN 26 PG (25-34); MEAN CORPUSCULAR HGB CONC 34 G/DL (32-36); MEAN CORPUSCULAR VOLUME 77 FL (80-99); MEAN PLATELET VOLUME 9.5 FL (7.4-10.4); MONOCYTES # (AUTO) 0.9 X 10^3 (0.0-1.0); MONOCYTES % (AUTO) 13 % (0-12); NEUTROPHILS # (AUTO) 3.7 X 10^3 (1.8-7.8); NEUTROPHILS % (AUTO) 56 % (42-75); PLATELET COUNT 296 10^3/uL (130-400); RED CELL DISTRIBUTION WIDTH 14.5 % (10.0-14.5); WHITE BLOOD COUNT 6.6 10^3/uL (4.3-11.0)
[2019-12-02 16:32] LABS: BACTERIA,URINE TRACE /HPF
[2019-12-02 16:47] LABS: ALANINE AMINOTRANSFERASE 25 U/L (0-55); ALBUMIN 4.1 GM/DL (3.2-4.5); ALKALINE PHOSPHATASE 52 U/L (40-136); BILIRUBIN,TOTAL 0.3 MG/DL (0.1-1.0); BUN/CREATININE RATIO 13; CALCIUM 8.7 MG/DL (8.5-10.1); CARBON DIOXIDE 21 MMOL/L (21-32); CHLORIDE 106 MMOL/L (98-107); CREATININE SERUM 0.71 MG/DL (0.60-1.30); GFR ESTIMATED > 60; GLUCOSE 105 MG/DL (70-105); POTASSIUM 3.5 MMOL/L (3.6-5.0); SODIUM 137 MMOL/L (135-145); TOTAL PROTEIN 7.3 GM/DL (6.4-8.2)
--- NOTE | 2019-12-02 16:51 | Diagnostic Imaging Report ---
PROCEDURE: CT urinary tract, rule out kidney stone. TECHNIQUE: Multiple contiguous axial images were obtained through the abdomen and pelvis without the use of intravenous contrast. Auto Exposure Controls were utilized during the CT exam to meet ALARA standards for radiation dose reduction. INDICATION: Left flank pain, vomiting, history of kidney stones. Previous lithotripsy. COMPARISON STUDY: CT of the abdomen and pelvis from 10/18/2018. FINDINGS: A 2 mm calculus is present in the lower pole of the left kidney. No hydronephrosis or inflammation is present. No calculi are present in the ureter or urinary bladder. A tiny phlebolith is again seen in the left side of the pelvis. Right kidney demonstrates a 2 mm calculus in the lower pole. No hydronephrosis or inflammation is present. The ureter appears normal. Urinary bladder is decompressed and appears unremarkable. Prostate gland is normal. Lung bases are clear. The liver, gallbladder, spleen, pancreas and adrenal glands are normal. Tiny fat-containing umbilical hernia is present. There is no ascites, free air or abnormal adenopathy. The appendix and bowel loops appear normal. No vascular calcifications are present. The osseous structures are normal. IMPRESSION: There is a 2 mm calculus in each kidney. No inflammation or hydronephrosis is present. Dictated by: Dictated on workstation # [id number]
--- NOTE | 2019-12-02 16:56 | Diagnostic Imaging Report ---
INDICATION: Left flank pain. COMPARISON: Abdominal radiograph of 10/19/2018. FINDINGS: Non-obstructive bowel gas pattern. No features of free intraperitoneal air. Small volume of colonic stool. No radiopaque renal or ureteral calculi are appreciated by radiography. Normal regional skeleton. IMPRESSION: The patient's known 2 mm left renal stone is not radiographically apparent. Dictated by: Dictated on workstation # [id number]
[2019-12-02] MEDS ORDERED: ACHD5005 PO (17:06)
[2019-12-02] MEDS ORDERED: SULF1TAB35 PO (17:06)
--- NOTE | 2019-12-02 17:07 | ED GU-Female ---
General Chief Complaint: - Urinary Stated Complaint: VOMITING/LOWER BACK L SIDE PAIN Nursing Triage Note: Pt ambulates to triage with c/o N/V, left flank pain and burning urination x 2 days. Pt also reports orangish urine yesterday. Pt has Hx of kidney stones. Nursing Sepsis Screen: No Definite Risk Source: patient Exam Limitations: no limitations History of Present Illness Date Seen by Provider: Dec 02, 2019 Time Seen by Provider: 16:05 Allergies and Home Medications Allergies Coded Allergies: NKANo Known Allergies (Verified Allergy, Unknown, 03/21/06) Home Medications Albuterol Sulfate 2.5 Mg/3 Ml Vial.neb, 2.5 MG NEB Q6H PRN for SHORTNESS OF BREATH, (Reported) Albuterol Sulfate 1 Puff Puff, 2 PUFF INH Q6H PRN for SHORTNESS OF BREATH, (Reported) Ascorbic Acid 500 Mg Tablet, 500 MG PO DAILY PRN for FEELING SICK, (Reported) Biotin 1,000 Mcg Tablet, 1,000 MCG PO DAILY, (Reported) Cephalexin 500 Mg Capsule, 500 MG PO BID Prescribed by: LOC DURAN on 10/19/18 0941 Hydrocodone Bit/Acetaminophen 1 Tab Tab, 1-2 TAB PO Q4H PRN for PAIN-MODERATE TO SEVERE Prescribed by: LOC DURAN on 10/19/18 0941 Hydrocodone Bit/Acetaminophen 1 Tab Tab, 1 EACH PO Q4-6HR PRN for PAIN-MODERATE Prescribed by: RASHAD MORENO on 12/02/19 1706 Niacinamide 500 Mg Tablet, 500 MG PO DAILY, (Reported) Sulfamethoxazole/Trimethoprim 1 Each Tablet, 1 EACH PO BID Prescribed by: RASHAD MORENO on 12/02/19 1706 Past Cqqzyvn-Mnlfwe-Sxicci Hx Patient Social History Alcohol Use: Denies Use Recreational Drug Use: No Smoking Status: Never a Smoker 2nd Hand Smoke Exposure: No Recent Foreign Travel: No Contact w/Someone Who Travel: No Recent Infectious Disease Expo: No Recent Hopitalizations: No Physical Abuse: No Sexual Abuse: No Mistreated: No Fear: No Immunizations Up To Date Tetanus Booster (TDap): Less than 5yrs Date of Influenza Vaccine: Sep 27, 2018 Seasonal Allergies Seasonal Allergies: No Past Medical History Surgeries: Yes (lithotripsy) Respiratory: Yes Asthma Cardiac: No Neurological: No Genitourinary: Yes Kidney Stones Gastrointestinal: No Musculoskeletal: No Endocrine: No HEENT: No Cancer: No Did You Recieve Any Treatments: No Psychosocial: Yes (OCD) Integumentary: No Blood Disorders: No Family Medical History No Pertinent Family Hx Physical Exam Vital Signs Vital Signs - First Documented 12/02/19 15:52 Temp 36.9 Pulse 86 Resp 17 B/P (MAP) 130/84 (99) Pulse Ox 97 O2 Delivery Room Air Capillary Refill : Less Than 3 Seconds Height, Weight, BMI Height: 5'10.00" Weight: 260lbs. 0.0oz. 117.870032hr; 43.00 BMI Method:Stated Progress/Results/Core Measures Suspected Sepsis Recent Fever Within 48 Hours: No Infection Criteria Present: None New/Unexplained Altered Menta: No Sepsis Screen: No Definite Risk SIRS Temperature: Pulse: 86 Respiratory Rate: 17 Laboratory Tests 12/02/19 16:15: White Blood Count 6.6 Blood Pressure 130 /84 Mean: 99 Laboratory Tests 12/02/19 16:15: Creatinine 0.71, Platelet Count 296, Total Bilirubin 0.3 Results/Orders Lab Results Laboratory Tests Test 12/02/19 16:02 12/02/19 16:15 Range/Units Urine Color YELLOW Urine Clarity CLEAR Urine pH 6.5 5-9 Urine Specific [place] 1.025 H 1.016-1.022 Urine Protein NEGATIVE NEGATIVE Urine Glucose (UA) NEGATIVE NEGATIVE Urine Ketones NEGATIVE NEGATIVE Urine Nitrite NEGATIVE NEGATIVE Urine Bilirubin NEGATIVE NEGATIVE Urine Urobilinogen 1.0 < = 1.0 MG/DL Urine Leukocyte Esterase NEGATIVE NEGATIVE Urine RBC (Auto) NEGATIVE NEGATIVE Urine RBC NONE /HPF Urine WBC NONE /HPF Urine Crystals NONE /LPF Urine Bacteria TRACE /HPF Urine Casts NONE /LPF Urine Mucus SMALL H /LPF Urine Culture Indicated NO White Blood Count 6.6 4.3-11.0 10^3/uL Red Blood Count 5.49 4.35-5.85 10^6/uL Hemoglobin 14.2 13.3-17.7 G/DL Hematocrit 42 40-54 % Mean Corpuscular Volume 77 L 80-99 FL Mean Corpuscular Hemoglobin 26 25-34 PG Mean Corpuscular Hemoglobin Concent 34 32-36 G/DL Red Cell Distribution Width 14.5 10.0-14.5 % Platelet Count 296 130-400 10^3/uL Mean Platelet Volume 9.5 7.4-10.4 FL Neutrophils (%) (Auto) 56 42-75 % Lymphocytes (%) (Auto) 26 12-44 % Monocytes (%) (Auto) 13 H 0-12 % Eosinophils (%) (Auto) 4 0-10 % Basophils (%) (Auto) 0 0-10 % Neutrophils # (Auto) 3.7 1.8-7.8 X 10^3 Lymphocytes # (Auto) 1.8 1.0-4.0 X 10^3 Monocytes # (Auto) 0.9 0.0-1.0 X 10^3 Eosinophils # (Auto) 0.2 0.0-0.3 10^3/uL Basophils # (Auto) 0.0 0.0-0.1 10^3/uL Sodium Level 137 135-145 MMOL/L Potassium Level 3.5 L 3.6-5.0 MMOL/L Chloride Level 106 98-107 MMOL/L Carbon Dioxide Level 21 21-32 MMOL/L Anion Gap 10 5-14 MMOL/L Blood Urea Nitrogen 9 7-18 MG/DL Creatinine 0.71 0.60-1.30 MG/DL Estimat Glomerular Filtration Rate > 60 BUN/Creatinine Ratio 13 Glucose Level 105 70-105 MG/DL Calcium Level 8.7 8.5-10.1 MG/DL Corrected Calcium 8.6 8.5-10.1 MG/DL Total Bilirubin 0.3 0.1-1.0 MG/DL Aspartate Amino Transf (AST/SGOT) 17 5-34 U/L Alanine Aminotransferase (ALT/SGPT) 25 0-55 U/L Alkaline Phosphatase 52 40-136 U/L Total Protein 7.3 6.4-8.2 GM/DL Albumin 4.1 3.2-4.5 GM/DL My Orders Orders - RASHAD MORENO Ct Abd/Pelvis Wo(Kidney Stone) (12/02/19 16:05) Abdomen/Kub 1view (12/02/19 16:05) Ed Iv/Invasive Line Start (12/02/19 16:05) Cbc With Automated Diff (12/02/19 16:05) Comprehensive Metabolic Panel (12/02/19 16:05) Ns Iv 1000 Ml (Sodium Chloride 0.9%) (12/02/19 16:15) Ketorolac Injection (Toradol Injection) (12/02/19 16:15) Medications Given in ED Current Medications Medications Dose Ordered Sig/Radha Route Start Time Stop Time Status Last Admin Dose Admin Ketorolac Tromethamine 30 mg ONCE ONCE IVP 12/02/19 16:15 12/02/19 16:16 DC 12/02/19 16:20 30 MG Vital Signs/I&O 12/02/19 15:52 Temp 36.9 Pulse 86 Resp 17 B/P (MAP) 130/84 (99) Pulse Ox 97 O2 Delivery Room Air Capillary Refill : Less Than 3 Seconds Blood Pressure Mean: 99 Departure Impression Primary Impression: Kidney stone Disposition: HOME, SELF-CARE Condition: Stable/Unchanged Departure-Patient Inst. Decision time for Depature: 17:04 Referrals: JENNA BRUNO MD (PCP/Family) Primary Care Physician Patient Instructions: Kidney Stones (DC) Add. Discharge Instructions: Take medications as directed. Call Dr. Salgado's office first thing tomorrow morning to schedule an appointment for follow-up. Strain all urine and if you should pass the stone take it with you. Return back to the emergency room for worsening symptoms or concerns as needed. All discharge instructions reviewed with patient and/or family. Voiced understanding. Scripts Ondansetron (Ondansetron Odt) 4 Mg Tab.rapdis 4 MG PO Q4H, #14 TAB Prov: RASHAD MORENO 12/02/19 Hydrocodone Bit/Acetaminophen (Hydrocodone/Acetaminophen 5/325mg Tablet) 1 Tab Tab 1 EACH PO Q4-6HR PRN for PAIN-MODERATE MDD 10 for 3 Days, #14 TAB Prov: RASHAD MORENO 12/02/19 Sulfamethoxazole/Trimethoprim (Bactrim Ds Tablet) 1 Each Tablet 1 EACH PO BID for 7 Days, #14 TAB Prov: RASHAD MORENO 12/02/19 RASHAD MORENO Dec 02, 2019 17:06
[2019-12-02 17:10] VITALS: BP 127/86
[2019-12-02] MEDS ORDERED: ONDA4TAB11 PO (17:11)
== END 2019-12-02 17:16 | disposition home or self-care (01) ==
LOC: EDUNIT# 15:09 → ER 15:10
DX: N20.0 Calculus of kidney (principal); J45.909 Unspecified asthma, uncomplicated; F42.9 Obsessive-compulsive disorder, unspecified
CPT/HCPCS: 36415; 74018; 74176; 80053; 81000; 85025; 96361; 96374

== ENCOUNTER → 2021-05-31 | Outpatient (CLI) | payer OTHER ==
[~2021-05-31] MED LIST changes: +ASCO500T17 PO; -ASCO500T6 PO; +ONDA4TAB11 PO; +SULF1TAB38 PO
== END ==
LOC: LABNPT 08:31
PROVIDERS: ATTEND Internal Medicine
DX: Z20.822 Contact with and (suspected) exposure to COVID-19 (principal)
CPT/HCPCS: 87636

== ENCOUNTER 2021-08-11 22:28 | Emergency (ER) | payer OTHER ==
[~2021-08-11] VITALS: Ht 172.3 cm; Wt 104.3 kg
[2021-08-11 22:49] LABS: BILIRUBIN,URINE NEGATIVE (NEGATIVE); CLARITY,URINE CLEAR; COLOR,URINE YELLOW; GLUCOSE, URINE (UA) NEGATIVE (NEGATIVE); KETONES,URINE NEGATIVE (NEGATIVE); LEUKOCYTE ESTERASE ,URINE NEGATIVE (NEGATIVE); NITRITE,URINE NEGATIVE (NEGATIVE); PROTEIN,URINE NEGATIVE (NEGATIVE)
[2021-08-11 22:56] LABS: BACTERIA,URINE FEW /HPF; WBC,URINE 0-2 /HPF
[2021-08-11 22:57] LABS: SQUAMOUS EPITHELIAL CELL,UR 0-2 /HPF
[2021-08-11] MEDS ORDERED: KETOROLAC 30 MG/ML VIAL IVP STA (22:57)
[2021-08-11] MEDS ORDERED: ONDANSETRON 4 MG/2 ML (SDV) Z0FRAN IVP ONE (23:00)
[2021-08-11] MEDS ORDERED: NS IV 1000 ML 1,000 ML IV SCH (23:00)
--- NOTE | 2021-08-11 23:24 | Diagnostic Imaging Report ---
EXAMINATION: CT abdomen and pelvis without contrast. TECHNIQUE: Multiple contiguous axial images were obtained through the abdomen and pelvis without the use of intravenous contrast. All CT scans use one or more of the following dose optimizing techniques: automated exposure control, MA and/or KvP adjustment based on patient size and exam type or iterative reconstruction. HISTORY: Flank pain, kidney stone suspected COMPARISON: 12/02/2019 FINDINGS: Lung bases: The lung bases are clear. Solid organs: The liver is normal. The gallbladder is normal. There is no biliary ductal dilation. Pancreas is normal. Spleen is normal. Adrenal glands are normal. There is a 0.3 cm calculus within the mid right ureter resulting in mild right hydronephrosis. There are additional bilateral nonobstructing renal calculi measuring up to 0.4 cm. Bowel: The stomach and small bowel are normal without obstruction. The colon and appendix are normal. Peritoneum: There is no intraperitoneal free fluid or free air. No suspicious lymphadenopathy. Vasculature: Normal without aneurysm. Musculoskeletal: No suspicious osseous lesion or compression fracture. Pelvis: The prostate gland is normal. The urinary bladder is normal. IMPRESSION: 1. A 0.3 cm calculus within the mid right ureter resulting in mild right hydronephrosis. 2. Additional nonobstructing bilateral renal calculi measuring up to 0.4 cm. Dictated by: Dictated on workstation # [id number]
[2021-08-11 23:32] LABS: BASOPHILS # (AUTO) 0.1 10^3/uL (0.0-0.1); BASOPHILS % (AUTO) 1 % (0-10); CALCIUM 9.4 MG/DL (8.5-10.1); EOSINOPHILS # (AUTO) 0.1 10^3/uL (0.0-0.3); EOSINOPHILS % (AUTO) 2 % (0-10); HEMATOCRIT 47 % (40-54); HEMOGLOBIN 15.8 g/dL (13.3-17.7); LYMPHOCYTES # (AUTO) 1.5 10^3/uL (1.0-4.0); LYMPHOCYTES % (AUTO) 16 % (12-44); MEAN CORPUSCULAR HEMOGLOBIN 27 pg (25-34); MEAN CORPUSCULAR HGB CONC 34 g/dL (32-36); MEAN CORPUSCULAR VOLUME 81 fL (80-99); MONOCYTES # (AUTO) 0.8 10^3/uL (0.0-1.0); MONOCYTES % (AUTO) 8 % (0-12); NEUTROPHILS # (AUTO) 6.7 10^3/uL (1.8-7.8); NEUTROPHILS % (AUTO) 73 % (42-75); PLATELET COUNT 302 10^3/uL (130-400); WHITE BLOOD COUNT 9.1 10^3/uL (4.3-11.0)
[2021-08-11] MEDS ORDERED: TAMSULOSIN 0.4 MG (FLOMAX) CAP PO ONE (23:33)
[2021-08-11 23:36] LABS: CREATININE SERUM 0.82 MG/DL (0.60-1.30)
[2021-08-11] MEDS ORDERED: ONDA4TAB11 PO (23:40)
[2021-08-11] MEDS ORDERED: TMSL.4C PO (23:40)
[2021-08-11] MEDS ORDERED: ACHD5005 PO (23:40)
[2021-08-11] MEDS ORDERED: RX-ONDANSETRON 4 MG ODT (ZOFRAN) PPK #4 PO STA (23:41)
--- NOTE | 2021-08-11 23:41 | ED GU-Male ---
General Chief Complaint: Abdominal/GI Problems Stated Complaint: PAINFUL URINATION/ABD PAIN/N/V Nursing Triage Note: c/o right flank pain x1.5 days with painful urination. reports similiar pain with previous renal stone. History of Present Illness Date Seen by Provider: Aug 11, 2021 Time Seen by Provider: 22:58 Initial Comments 21-year-old male presents for right flank pain, nausea and vomiting. He reports his symptoms began yesterday but had gotten worse this evening. He took hydrocodone at approximately 2200 and vomited shortly after. He has had a kidney stone in the past the last one being 2019. He has seen Dr. Gaston in the past. Timing/Duration: yesterday Severity/Quality: moderate Location: suprapubic Radiation: right flank Associated Symptoms: No abdominal pain; dysuria, lower back pain, nausea/vomiting Allergies and Home Medications Allergies Coded Allergies: NKANo Known Allergies (Verified Allergy, Unknown, 03/21/06) Patient Home Medication List Home Medication List Reviewed: Yes Albuterol Sulfate (Albuterol Sulfate) 2.5 Mg/3 Ml Vial.neb, 2.5 MG NEB Q6H PRN for SHORTNESS OF BREATH, (Reported) Entered as Reported by: EAN CARTWRIGHT on 10/18/18 0410 Albuterol Sulfate (Proair Hfa) 1 Puff Puff, 2 PUFF INH Q6H PRN for SHORTNESS OF BREATH, (Reported) Entered as Reported by: MICHAEL GOODE on 10/18/18 0854 Ascorbic Acid (Vitamin C) 500 Mg Tablet, 500 MG PO DAILY PRN for FEELING SICK, (Reported) Entered as Reported by: MICHAEL GOODE on 10/18/18 0853 Biotin (Biotin) 1,000 Mcg Tablet, 1,000 MCG PO DAILY, (Reported) Entered as Reported by: MICHAEL GOODE on 10/18/18 0853 Cephalexin (Keflex) 500 Mg Capsule, 500 MG PO BID Prescribed by: LOC DURAN on 10/19/18940 Hydrocodone Bit/Acetaminophen (Lortab 5 Mg Tablet) 1 Tab Tab, 1-2 TAB PO Q4H PRN for PAIN-MODERATE TO SEVERE Prescribed by: LOC DURAN on 10/19/18940 Hydrocodone Bit/Acetaminophen (Lortab 5 Mg Tablet) 1 Tab Tab, 1 EACH PO Q4-6HR PRN for PAIN-MODERATE Prescribed by: RASHAD MORENO on 12/02/19 170 Hydrocodone/Acetaminophen (Hydrocodone-Acetamin 5-325 mg) 1 Each Tablet, 1 TAB PO Q6H PRN for PAIN-MODERATE (5-7) Prescribed by: NATALIO FERRARA on 08/11/21 2340 Niacinamide (Niacin) 500 Mg Tablet, 500 MG PO DAILY, (Reported) Entered as Reported by: MICHAEL GOODE on 10/18/18 0853 Ondansetron (Ondansetron Odt) 4 Mg Tab.rapdis, 4 MG PO Q4H Prescribed by: RASHAD MORENO on 12/02/19 1711 Ondansetron (Ondansetron Odt) 4 Mg Tab.rapdis, 4 MG PO Q6H PRN for NAUSEA/VOMITING Prescribed by: NATALIO FERRARA on 08/11/21 2340 Sulfamethoxazole/Trimethoprim (Bactrim Ds Tablet) 1 Each Tablet, 1 EACH PO BID Prescribed by: RASHAD MORENO on 12/02/19 170 Tamsulosin HCl (Flomax) 0.4 Mg Cap, 0.4 MG PO DAILY Prescribed by: NATALIO FERRARA on 08/11/21 2340 Review of Systems Review of Systems Constitutional: no symptoms reported, see HPI Genitourinary: see HPI, flank pain, pain All Other Systemes Reviewed Negative Unless Noted: Yes Past Prnxifo-Vhjdei-Iknner Hx Patient Social History Tobacco Use?: Yes Tobacco type used: Cigarettes Smokeless Tobacco Frequency: Current Everyday User Substance use?: No Alcohol Use?: No Pt feels they are or have been: No Immunizations Up To Date Tetanus Booster (TDap): Less than 5yrs First/Initial COVID19 Vaccinat: 01/03 Second COVID19 Vaccination Lionel: 01/31 COVID19 Vaccine Supervisor Production Managing: moderna Seasonal Allergies Seasonal Allergies: No Past Medical History Surgery/Hospitalization HX: renal stones Surgeries: Yes (lithotripsy) Respiratory: Yes Asthma Cardiac: No Neurological: No Genitourinary: Yes Kidney Stones Gastrointestinal: No Musculoskeletal: No Endocrine: No HEENT: No Cancer: No Did You Recieve Any Treatments: No Psychosocial: Yes (OCD) Integumentary: No Blood Disorders: No Family Medical History Reviewed Nursing Family Hx No Pertinent Family Hx Physical Exam Vital Signs Vital Signs - First Documented 08/11/21 22:52 Temp 36.2 Pulse 66 Resp 18 B/P (MAP) 141/59 (86) Pulse Ox 98 O2 Delivery Room Air Capillary Refill : Less Than 3 Seconds Height, Weight, BMI Height: 5'10.00" Weight: 260lbs. 0.0oz. 117.133491ux; 35.00 BMI Method:Stated General Appearance: WD/WN, mild distress Neck: non-tender, full range of motion, supple, normal inspection Cardiovascular: normal peripheral pulses, regular rate, rhythm Respiratory: chest non-tender, lungs clear, normal breath sounds Gastrointestinal: normal bowel sounds, non tender, soft; No rebound Back: normal inspection, no vertebral tenderness, CVA tenderness (R); No CVA tenderness (L) Neurologic/Psychiatric: no motor/sensory deficits, alert, normal mood/affect, oriented x 3 Skin: normal color, warm/dry Progress/Results/Core Measures Suspected Sepsis SIRS Temperature: Pulse: 66 Respiratory Rate: 18 Laboratory Tests 08/11/21 23:03: White Blood Count 9.1 Blood Pressure 141 /59 Mean: 86 Laboratory Tests 08/11/21 23:03: Creatinine 0.82, Platelet Count 302 Results/Orders Lab Results Laboratory Tests Test 08/11/21 22:31 08/11/21 23:03 Range/Units Urine Color YELLOW Urine Clarity CLEAR Urine pH 6.0 5-9 Urine Specific [place] 1.025 H 1.016-1.022 Urine Protein NEGATIVE NEGATIVE Urine Glucose (UA) NEGATIVE NEGATIVE Urine Ketones NEGATIVE NEGATIVE Urine Nitrite NEGATIVE NEGATIVE Urine Bilirubin NEGATIVE NEGATIVE Urine Urobilinogen 0.2 < = 1.0 MG/DL Urine Leukocyte Esterase NEGATIVE NEGATIVE Urine RBC (Auto) 3+ H NEGATIVE Urine RBC 2-5 H /HPF Urine WBC 0-2 /HPF Urine Squamous Epithelial Cells 0-2 /HPF Urine Crystals NONE /LPF Urine Bacteria FEW H /HPF Urine Casts NONE /LPF Urine Mucus MODERATE H /LPF Urine Culture Indicated NO White Blood Count 9.1 4.3-11.0 10^3/uL Red Blood Count 5.81 H 4.30-5.52 10^6/uL Hemoglobin 15.8 13.3-17.7 g/dL Hematocrit 47 40-54 % Mean Corpuscular Volume 81 80-99 fL Mean Corpuscular Hemoglobin 27 25-34 pg Mean Corpuscular Hemoglobin Concent 34 32-36 g/dL Red Cell Distribution Width 13.5 10.0-14.5 % Platelet Count 302 130-400 10^3/uL Mean Platelet Volume 10.0 9.0-12.2 fL Immature Granulocyte % (Auto) 0 % Neutrophils (%) (Auto) 73 42-75 % Lymphocytes (%) (Auto) 16 12-44 % Monocytes (%) (Auto) 8 0-12 % Eosinophils (%) (Auto) 2 0-10 % Basophils (%) (Auto) 1 0-10 % Neutrophils # (Auto) 6.7 1.8-7.8 10^3/uL Lymphocytes # (Auto) 1.5 1.0-4.0 10^3/uL Monocytes # (Auto) 0.8 0.0-1.0 10^3/uL Eosinophils # (Auto) 0.1 0.0-0.3 10^3/uL Basophils # (Auto) 0.1 0.0-0.1 10^3/uL Immature Granulocyte # (Auto) 0.0 0.0-0.1 10^3/uL Sodium Level 137 135-145 MMOL/L Potassium Level 4.0 3.6-5.0 MMOL/L Chloride Level 107 98-107 MMOL/L Carbon Dioxide Level 20 L 21-32 MMOL/L Anion Gap 10 5-14 MMOL/L Blood Urea Nitrogen 10 7-18 MG/DL Creatinine 0.82 0.60-1.30 MG/DL Estimat Glomerular Filtration Rate 116 BUN/Creatinine Ratio 12 Glucose Level 93 70-105 MG/DL Calcium Level 9.4 8.5-10.1 MG/DL My Orders Orders - NATALIO FERRARA Ua Culture If Indicated (08/11/21 22:44) Ct Abd/Pelvis Wo(Kidney Stone) (08/11/21 22:57) Ed Iv/Invasive Line Start (08/11/21 22:57) Ns Iv 1000 Ml (Sodium Chloride 0.9%) (08/11/21 23:00) Ketorolac Injection (Toradol Injection) (08/11/21 22:57) Abdomen/Kub 1view (08/11/21 22:57) Ondansetron Injection (Zofran Injectio (08/11/21 23:00) Cbc With Automated Diff (08/11/21 23:27) Tamsulosin Capsule (Flomax Capsule) (08/11/21 23:33) Rx-Ondansetron Po (Rx-Zofran Po) (08/11/21 23:41) Medications Given in ED Current Medications Medications Dose Ordered Sig/Radha Route Start Time Stop Time Status Last Admin Dose Admin Ondansetron HCl 8 mg ONCE ONCE IVP 08/11/21 23:00 08/11/21 23:01 DC 08/11/21 23:06 8 MG Vital Signs/I&O 08/11/21 22:52 Temp 36.2 Pulse 66 Resp 18 B/P (MAP) 141/59 (86) Pulse Ox 98 O2 Delivery Room Air Capillary Refill : Less Than 3 Seconds Blood Pressure Mean: 86 Progress Note : Time: 22:58 Progress Note Patient seen and evaluated, will give IV fluids, Zofran for nausea, Toradol 30 mg IV for pain. CT and x-ray of the abdomen. 2340 CT results reviewed with the patient and his mother. Patient reports pain and nausea improved after medications. Discharge instructions and return precautions reviewed with the patient Diagnostic Imaging Diagonstic Imaging: Xray Plain Films/CT/US/NM/MRI: abdomen Comments NAME: JANEEN KASPER [facility] REC#: [id number] PT STATUS: REG ER : 2000 PHYSICIAN: NATALIO FERRARA ADMIT DATE: 08/11/21/ER Draft Date of Exam:08/11/21 ABDOMEN/KUB 1VIEW EXAMINATION: Abdomen 1 view HISTORY: abdomen pain COMPARISON: CT abdomen and pelvis 08/11/2021 FINDINGS: There is a moderate amount of gas and stool throughout the colon. Nonobstructive bowel gas pattern. Multiple opacities are present overlying the kidneys measuring up to 0.4 cm. There is a a 0.3 cm opacity just medial to the right kidney which could correspond to the ureter stones seen on CT. The osseous structures are intact. IMPRESSION: Multiple bilateral renal calculi are seen. A 0.3 cm calculus within the expected location of the right ureter seen on same-day CT of the abdomen and pelvis. Moderate stool burden. Dictated on workstation # [id number] Dict: 08/11/212330 Trans: 08/11/212338 CAREN [id number] Interpreted by: EAN HINDS DO Electronically signed by: Reviewed: Reviewed by Me Diagonstic Imaging: CT Plain Films/CT/US/NM/MRI: abdomen, pelvis Comments NAME: JANEEN KASPER [facility] REC#: [id number] PT STATUS: REG ER : 2000 PHYSICIAN: NATALIO FERRARA ADMIT DATE: 08/11/21/ER Signed Date of Exam:08/11/21 CT ABD/PELVIS WO(KIDNEY STONE) EXAMINATION: CT abdomen and pelvis without contrast. TECHNIQUE: Multiple contiguous axial images were obtained through the abdomen and pelvis without the use of intravenous contrast. All CT scans use one or more of the following dose optimizing techniques: automated exposure control, MA and/or KvP adjustment based on patient size and exam type or iterative reconstruction. HISTORY: Flank pain, kidney stone suspected COMPARISON: 12/02/2019 FINDINGS: Lung bases: The lung bases are clear. Solid organs: The liver is normal. The gallbladder is normal. There is no biliary ductal dilation. Pancreas is normal. Spleen is normal. Adrenal glands are normal. There is a 0.3 cm calculus within the mid right ureter resulting in mild right hydronephrosis. There are additional bilateral nonobstructing renal calculi measuring up to 0.4 cm. Bowel: The stomach and small bowel are normal without obstruction. The colon and appendix are normal. Peritoneum: There is no intraperitoneal free fluid or free air. No suspicious lymphadenopathy. Vasculature: Normal without aneurysm. Musculoskeletal: No suspicious osseous lesion or compression fracture. Pelvis: The prostate gland is normal. The urinary bladder is normal. IMPRESSION: 1. A 0.3 cm calculus within the mid right ureter resulting in mild right hydronephrosis. 2. Additional nonobstructing bilateral renal calculi measuring up to 0.4 cm. Dictated by: Dictated on workstation # [id number] Dict: 08/11/212320 Trans: 08/11/212324 CRAEN [id number] Interpreted by: EAN HINDS DO Electronically signed by: EAN HINDS DO 08/11/212324 Reviewed: Reviewed by Me Departure Impression Primary Impression: Urolithiasis Qualified Codes: N20.1 - Calculus of ureter Additional Impression: Flank pain with history of urolithiasis Disposition: HOME, SELF-CARE Condition: Stable Departure-Patient Inst. Decision time for Depature: 23:30 Referrals: JENNA BRUNO MD (PCP/Family) Primary Care Physician Patient Instructions: Flank Pain (DC), Kidney Stones (DC) Add. Discharge Instructions: Increase water intake, 16 ounces every 2 hours while awake. Use the pain medication as prescribed. Use the nausea medication as prescribed Take Flomax, as prescribed. Strain Urine. Follow-up with Dr. Gaston, call office tomorrow for appt. Return to the emergency department for persistent nausea and vomiting or worsening of symptoms. All discharge instructions reviewed with patient and/or family. Voiced understanding. Scripts Ondansetron (Ondansetron Odt) 4 Mg Tab.rapdis 4 MG PO Q6H PRN for NAUSEA/VOMITING, #8 TAB 0 Refills Prov: NATALIO FERRARA 08/11/21 Hydrocodone/Acetaminophen (Hydrocodone-Acetamin 5-325 mg) 1 Each Tablet 1 TAB PO Q6H PRN for PAIN-MODERATE (5-7), #12 TAB 0 Refills Prov: NATALIO FERRARA 08/11/21 Tamsulosin HCl (Flomax) 0.4 Mg Cap 0.4 MG PO DAILY for 14 Days, #14 CAP 0 Refills Prov: NATALIO FERRARA 08/11/21 Copy Copies To 1: RAMYA GASTON MD, AMY ARNP Aug 11, 2021 23:41
[2021-08-11 23:51] VITALS: BP 141/64
[2021-08-12] MEDS ORDERED: TAMSULOSIN 0.4 MG (FLOMAX) CAP PO SCH (18:00)
== END 2021-08-11 23:57 | disposition home or self-care (01) ==
LOC: EDUNIT# 22:28 → ER 22:31
DX: N13.2 Hydronephrosis with renal and ureteral calculous obstruction (principal); J45.909 Unspecified asthma, uncomplicated; F17.210 Nicotine dependence, cigarettes, uncomplicated
CPT/HCPCS: 36415; 74018; 74176; 80048; 81000; 85025

== ENCOUNTER → 2021-12-02 | Outpatient (CLI) | payer OTHER ==
[~2021-12-02] MED LIST changes: +TMSL.4C PO
== END ==
LOC: LABNPT 08:00
PROVIDERS: ATTEND Internal Medicine
DX: U07.1 COVID-19 (principal)
CPT/HCPCS: 87635

== ENCOUNTER 2022-05-25 23:37 | Emergency (ER) | payer BC, OTHER ==
[~2022-05-25] VITALS: Ht 175.3 cm; Wt 117.9 kg
[2022-05-26 00:56] LABS: BILIRUBIN,URINE 1+ (NEGATIVE); CLARITY,URINE SL CLOUDY; COLOR,URINE YELLOW; GLUCOSE, URINE (UA) NEGATIVE (NEGATIVE); KETONES,URINE NEGATIVE (NEGATIVE); LEUKOCYTE ESTERASE ,URINE NEGATIVE (NEGATIVE); NITRITE,URINE NEGATIVE (NEGATIVE); PROTEIN,URINE 1+ (NEGATIVE)
[2022-05-26 01:00] LABS: BACTERIA,URINE MODERATE /HPF; RBC,URINE 0-2 /HPF; WBC,URINE 0-2 /HPF
[2022-05-26 01:01] LABS: AMORPHOUS SEDIMENT,UR MOD AMOR URATES /LPF; CALCIUM OXALATE CRYSTALS,UR FEW /LPF
[2022-05-26] MEDS ORDERED: ONDANSETRON 4 MG/2 ML (SDV) Z0FRAN IVP ONE (02:00)
[2022-05-26] MEDS ORDERED: KETOROLAC 30 MG/ML VIAL IVP ONE (02:00)
[2022-05-26] MEDS ORDERED: LACTATED RINGERS 1,000 ML IV ONE (02:00)
[2022-05-26 02:11] LABS: BASOPHILS % (AUTO) 0 % (0-10); EOSINOPHILS % (AUTO) 0 % (0-10); HEMATOCRIT 49 % (40-54); HEMOGLOBIN 16.4 g/dL (13.3-17.7); LYMPHOCYTES % (AUTO) 8 % (12-44); MEAN CORPUSCULAR HEMOGLOBIN 28 pg (25-34); MEAN CORPUSCULAR HGB CONC 34 g/dL (32-36); MEAN CORPUSCULAR VOLUME 84 fL (80-99); MEAN PLATELET VOLUME 9.8 fL (9.0-12.2); MONOCYTES # (AUTO) 0.4 10^3/uL (0.0-1.0); MONOCYTES % (AUTO) 3 % (0-12); NEUTROPHILS # (AUTO) 11.4 10^3/uL (1.8-7.8); NEUTROPHILS % (AUTO) 88 % (42-75); PLATELET COUNT 307 10^3/uL (130-400); WHITE BLOOD COUNT 12.9 10^3/uL (4.3-11.0)
[2022-05-26 02:29] LABS: CALCIUM 9.9 MG/DL (8.5-10.1)
[2022-05-26 02:34] LABS: CREATININE SERUM 0.82 MG/DL (0.60-1.30)
[2022-05-26 02:35] LABS: BAND NEUTROPHILS 1 %; BASOPHILS % (MANUAL) 0 %; EOSINOPHILS % (MANUAL) 0 %; LYMPHOCYTES % (MANUAL) 3 %; MONOCYTES % (MANUAL) 2 %; NEUTROPHILS % (MANUAL) 94 %; RBC MORPH NORMAL
[2022-05-26] MEDS ORDERED: CEPH500T PO (03:08)
--- NOTE | 2022-05-26 03:09 | ED General ---
General Chief Complaint: - Reproductive Stated Complaint: POSS KIDNEY STONE,LEFT SIDE Nursing Triage Note: C/O LEFT FLANK PAIN RADIATING TO LEFT TESTICLE X2.5HRS. Source of Information: Patient, Family Exam Limitations: No Limitations History of Present Illness Date Seen by Provider: May 26, 2022 Time Seen by Provider: 00:03 Initial Comments This 22-year-old young man presents to the emergency room with complaints of left flank and back pain starting around 0. Pain radiated to the left testicle. He had associated nausea. Pain has subsided significantly since onset and is now rated as 3/10. He did take hydrocodone x4 over the course of the last several hours. He did experience an episode of hematuria after onset of pain. He has history of ureteral stones and states this feels similar. He has history of lithotripsy with Dr. Gaston. Dr. Dias is his primary care provider. Allergies and Home Medications Allergies Coded Allergies: Liz Known Allergies (Verified Allergy, Unknown, 03/21/06) Patient Home Medication List Home Medication List Reviewed: Yes Cephalexin (Cephalexin) 500 Mg Tablet, 500 MG PO TID Prescribed by: STEVE SALMON on 05/26/22 0308 Discontinued Medications Albuterol Sulfate (Albuterol Sulfate) 2.5 Mg/3 Ml Vial.neb, 2.5 MG NEB Q6H PRN for SHORTNESS OF BREATH, (Reported) Discontinued Reason: No Longer Taking Entered as Reported by: EAN CARTWRIGHT on 10/18/180 Last Action: Discontinued Albuterol Sulfate (Proair Hfa) 1 Puff Puff, 2 PUFF INH Q6H PRN for SHORTNESS OF BREATH, (Reported) Discontinued Reason: No Longer Taking Entered as Reported by: MICHAEL GOODE on 10/18/18853 Last Action: Discontinued Ascorbic Acid (Vitamin C) 500 Mg Tablet, 500 MG PO DAILY PRN for FEELING SICK, (Reported) Discontinued Reason: No Longer Taking Entered as Reported by: MICHAEL GOODE on 10/18/18852 Last Action: Discontinued Biotin (Biotin) 1,000 Mcg Tablet, 1,000 MCG PO DAILY, (Reported) Discontinued Reason: No Longer Taking Entered as Reported by: MICHAEL GOODE on 10/18/18852 Last Action: Discontinued Cephalexin (Keflex) 500 Mg Capsule, 500 MG PO BID Discontinued Reason: No Longer Taking Prescribed by: LOC DURAN on 10/19/18940 Last Action: Discontinued Hydrocodone Bit/Acetaminophen (Lortab 5 Mg Tablet) 1 Tab Tab, 1-2 TAB PO Q4H PRN for PAIN-MODERATE TO SEVERE Discontinued Reason: No Longer Taking Prescribed by: LOC DURAN on 10/19/18940 Last Action: Discontinued Hydrocodone Bit/Acetaminophen (Lortab 5 Mg Tablet) 1 Tab Tab, 1 EACH PO Q4-6HR PRN for PAIN-MODERATE Discontinued Reason: No Longer Taking Prescribed by: RASHAD MORENO on 12/02/191705 Last Action: Discontinued Hydrocodone/Acetaminophen (Hydrocodone-Acetamin 5-325 mg) 1 Each Tablet, 1 TAB PO Q6H PRN for PAIN-MODERATE (5-7) Discontinued Reason: No Longer Taking Prescribed by: NATALIO FERRARA on 08/11/212339 Last Action: Discontinued Niacinamide (Niacin) 500 Mg Tablet, 500 MG PO DAILY, (Reported) Discontinued Reason: No Longer Taking Entered as Reported by: MICHAEL GOODE on 10/18/18 0853 Last Action: Discontinued Ondansetron (Ondansetron Odt) 4 Mg Tab.rapdis, 4 MG PO Q4H Discontinued Reason: No Longer Taking Prescribed by: RASHAD MORENO on 12/02/191710 Last Action: Discontinued Ondansetron (Ondansetron Odt) 4 Mg Tab.rapdis, 4 MG PO Q6H PRN for NAUSEA/VOMITING Discontinued Reason: No Longer Taking Prescribed by: NATALIO FERRARA on 08/11/212339 Last Action: Discontinued Sulfamethoxazole/Trimethoprim (Bactrim Ds Tablet) 1 Each Tablet, 1 EACH PO BID Discontinued Reason: No Longer Taking Prescribed by: RASHAD MORENO on 12/02/191705 Last Action: Discontinued Tamsulosin HCl (Flomax) 0.4 Mg Cap, 0.4 MG PO DAILY Discontinued Reason: No Longer Taking Prescribed by: NATALIO FERRARA on 08/11/212339 Last Action: Discontinued Review of Systems Review of Systems Constitutional: no symptoms reported EENTM: no symptoms reported Respiratory: no symptoms reported Cardiovascular: no symptoms reported Gastrointestinal: see HPI Genitourinary: see HPI Musculoskeletal: no symptoms reported Skin: no symptoms reported Psychiatric/Neurological: No Symptoms Reported Hematologic/Lymphatic: No Symptoms Reported Past Ifuglqx-Ckkkun-Myabcd Hx Patient Social History Tobacco Use?: Yes Substance use?: No Alcohol Use?: No Pt feels they are or have been: No Immunizations Up To Date Tetanus Booster (TDap): Less than 5yrs First/Initial COVID19 Vaccinat: 01/03 Second COVID19 Vaccination Lionel: 01/31 Seasonal Allergies Seasonal Allergies: No Past Medical History Surgery/Hospitalization HX: renal stones, LITHOTRYPSY Surgeries: Yes (lithotripsy) Respiratory: Yes Asthma Cardiac: No Neurological: No Genitourinary: Yes Kidney Stones Gastrointestinal: No Musculoskeletal: No Endocrine: No HEENT: No Cancer: No Did You Recieve Any Treatments: No Psychosocial: Yes (OCD) Integumentary: No Blood Disorders: No Family Medical History No Pertinent Family Hx Physical Exam Vital Signs Vital Signs - First Documented 05/25/22 23:42 Temp 36.5 Pulse 76 Resp 18 B/P (MAP) 140/96 (111) Pulse Ox 98 O2 Delivery Room Air Capillary Refill : Less Than 3 Seconds Height, Weight, BMI Height: 5'10.00" Weight: 260lbs. 0.0oz. 117.839525ye; 38.00 BMI Method:Stated General Appearance: No Apparent Distress, WD/WN HEENT: PERRL/EOMI, Normal ENT Inspection Neck: Normal Inspection Respiratory: Lungs Clear, Normal Breath Sounds, No Accessory Muscle Use Cardiovascular: Regular Rate, Rhythm, No Edema, No Murmur Gastrointestinal: Normal Bowel Sounds, Soft; No Distended; Tenderness (Mild in the left mid abdomen) Extremity: Normal Inspection, No Pedal Edema Neurologic/Psychiatric: Alert, Oriented x3, No Motor/Sensory Deficits, Normal Mood/Affect Skin: Normal Color, Warm/Dry Progress/Results/Core Measures Suspected Sepsis SIRS Temperature: Pulse: 76 Respiratory Rate: 18 Laboratory Tests 05/26/22 02:02: White Blood Count 12.9H Blood Pressure 140 /96 Mean: 111 Laboratory Tests 05/26/22 02:02: Creatinine 0.82, Platelet Count 307 Results/Orders Lab Results Laboratory Tests Test 05/25/22 23:45 05/26/22 02:02 Range/Units Urine Color YELLOW Urine Clarity SL CLOUDY Urine pH 5.0 5-9 Urine Specific Wolsey >=1.030 1.016-1.022 Urine Protein 1+ H NEGATIVE Urine Glucose (UA) NEGATIVE NEGATIVE Urine Ketones NEGATIVE NEGATIVE Urine Nitrite NEGATIVE NEGATIVE Urine Bilirubin 1+ H NEGATIVE Urine Urobilinogen 0.2 < = 1.0 MG/DL Urine Leukocyte Esterase NEGATIVE NEGATIVE Urine RBC (Auto) 3+ H NEGATIVE Urine RBC 0-2 /HPF Urine WBC 0-2 /HPF Urine Squamous Epithelial Cells NONE /HPF Urine Crystals PRESENT H /LPF Urine Calcium Oxalate Crystals FEW H /LPF Urine Amorphous Sediment MOD LORA URATES H /LPF Urine Bacteria MODERATE H /HPF Urine Casts NONE /LPF Urine Mucus MODERATE H /LPF Urine Culture Indicated YES White Blood Count 12.9 H 4.3-11.0 10^3/uL Red Blood Count 5.84 H 4.30-5.52 10^6/uL Hemoglobin 16.4 13.3-17.7 g/dL Hematocrit 49 40-54 % Mean Corpuscular Volume 84 80-99 fL Mean Corpuscular Hemoglobin 28 25-34 pg Mean Corpuscular Hemoglobin Concent 34 32-36 g/dL Red Cell Distribution Width 12.0 10.0-14.5 % Platelet Count 307 130-400 10^3/uL Mean Platelet Volume 9.8 9.0-12.2 fL Immature Granulocyte % (Auto) 0 % Neutrophils (%) (Auto) 88 H 42-75 % Lymphocytes (%) (Auto) 8 L 12-44 % Monocytes (%) (Auto) 3 0-12 % Eosinophils (%) (Auto) 0 0-10 % Basophils (%) (Auto) 0 0-10 % Neutrophils # (Auto) 11.4 H 1.8-7.8 10^3/uL Lymphocytes # (Auto) 1.0 1.0-4.0 10^3/uL Monocytes # (Auto) 0.4 0.0-1.0 10^3/uL Eosinophils # (Auto) 0.0 0.0-0.3 10^3/uL Basophils # (Auto) 0.0 0.0-0.1 10^3/uL Immature Granulocyte # (Auto) 0.0 0.0-0.1 10^3/uL Neutrophils % (Manual) 94 % Lymphocytes % (Manual) 3 % Monocytes % (Manual) 2 % Eosinophils % (Manual) 0 % Basophils % (Manual) 0 % Band Neutrophils 1 % Blood Morphology Comment NORMAL Sodium Level 140 135-145 MMOL/L Potassium Level 4.0 3.6-5.0 MMOL/L Chloride Level 104 98-107 MMOL/L Carbon Dioxide Level 20 L 21-32 MMOL/L Anion Gap 16 H 5-14 MMOL/L Blood Urea Nitrogen 10 7-18 MG/DL Creatinine 0.82 0.60-1.30 MG/DL Estimat Glomerular Filtration Rate 126 BUN/Creatinine Ratio 12 Glucose Level 115 H 70-105 MG/DL Calcium Level 9.9 8.5-10.1 MG/DL Micro Results Microbiology 05/25/22 Urine Culture - Final, Complete Gram Pos Mixed Bacterial Lindsay My Orders Orders - STEVE SMALLS MD Ua Culture If Indicated (05/26/22 00:03) Urine Culture (05/25/22 23:45) Ed Iv/Invasive Line Start (05/26/22 01:52) Lactated Ringers (Lr 1000 Ml Iv Solution (05/26/22 02:00) Basic Metabolic Panel (05/26/22 01:52) Cbc With Automated Diff (05/26/22 01:52) Ondansetron Injection (Zofran Injectio (05/26/22 02:00) Ketorolac Injection (Toradol Injection) (05/26/22 02:00) Abdomen/Kub 1view (05/26/22 01:52) Manual Differential (05/26/22 02:02) Cephalexin Capsule (Keflex Capsule) (05/26/22 03:15) Medications Given in ED Vital Signs/I&O 05/25/22 05/26/22 23:42 03:12 Temp 36.5 36.2 Pulse 76 71 Resp 18 16 B/P (MAP) 140/96 (111) 129/89 Pulse Ox 98 99 O2 Delivery Room Air Room Air Capillary Refill : Less Than 3 Seconds Blood Pressure Mean: 111 Progress Note : Progress Note Patient was treated with Zofran, hydration with LR, and Toradol. The pain in the left testicle had resolved prior to treatment. He reports testicle and scrotum were not tender to touch. Symptoms were consistent with prior ureteral stone. CT scan was offered. Patient declines at this time and prefers to strain urine and follow-up if he has persistent symptoms. Antibiotic prophylaxis was provided. KUB demonstrated no visible calcification along the expected course of ureters. Diagnostic Imaging Diagonstic Imaging: Xray Plain Films/CT/US/NM/MRI: abdomen, pelvis Comments KUB viewed by me. Report not available at the time of encounter. See report below: NAME: JANEEN KASPER [facility] REC#: [id number] PT STATUS: DEP ER : 2000 PHYSICIAN: STEVE SMALLS MD ADMIT DATE: 05/25/22/ER Signed Date of Exam:05/26/22 ABDOMEN/KUB 1VIEW History: Abdominal pain, history of kidney stones TECHNIQUE: Frontal view the abdomen COMPARISON: 08/11/2021 FINDINGS: There is a 4 mm calculus at the inferior right kidney and a 4 mm calculus at the inferior left kidney. These are stable since the prior exam. No new calculi are identified and no calculi are seen along the expected course of the ureters. No distended loops of bowel are seen. No large collection of free air seen. Please note that CT would be more sensitive for evaluation of renal calculi. IMPRESSION: 1. Stable renal calculi bilaterally. No calculi identified along the expected course of the ureters. Dictated by: Dictated on workstation # [id number] Dict: 05/26/22719 Trans: 05/26/22 1133 [facility] [id number] Interpreted by: AYALA FREED MD Electronically signed by: AYALA FREED MD 05/26/22 1133 Departure Impression Primary Impression: Left flank pain Additional Impression: Hematuria Qualified Codes: R31.9 - Hematuria, unspecified Disposition: 01 HOME, SELF-CARE Condition: Improved Departure-Patient Inst. Decision time for Depature: 03:06 Referrals: JENNA DIAS MD (PCP/Family) Primary Care Physician Patient Instructions: Flank Pain, Kidney Stone, Adult ED Add. Discharge Instructions: Drink plenty of clear liquids to stay well-hydrated. Follow-up with your primary care provider and/or Dr. Estrella within the next week. Call tomorrow to schedule an appointment. You may take ibuprofen up to 600 mg every 6 hours as needed for pain. Add hydrocodone as previously prescribed for pain not controlled by ibuprofen. Use your nausea medicine as previously prescribed to control nausea. Strain your urine and bring any stones or fragments collected to your follow-up appointment. Continue taking your antibiotics until there are culture results available to determine if antibiotics are still necessary. Return to care if you have worsening symptoms despite following these instructions. All discharge instructions reviewed with patient and/or family. Voiced understanding. Scripts Cephalexin (Cephalexin) 500 Mg Tablet 500 MG PO TID, #20 TAB Prov: STEVE SMALLS MD 05/26/22 Copy Copies To 1: RAMYA GASTON MD Copies To 2: JENNA DIAS MD, JOSHUA T MD May 26, 2022 03:09
[2022-05-26 03:12] VITALS: BP 129/89
[2022-05-26] MEDS ORDERED: CEPHALEXIN 250 MG (KEFLEX) CAP PO ONE (03:15)
--- NOTE | 2022-05-26 07:29 | Diagnostic Imaging Report ---
History: Abdominal pain, history of kidney stones TECHNIQUE: Frontal view the abdomen COMPARISON: 08/11/2021 FINDINGS: There is a 4 mm calculus at the inferior right kidney and a 4 mm calculus at the inferior left kidney. These are stable since the prior exam. No new calculi are identified and no calculi are seen along the expected course of the ureters. No distended loops of bowel are seen. No large collection of free air seen. Please note that CT would be more sensitive for evaluation of renal calculi. IMPRESSION: 1. Stable renal calculi bilaterally. No calculi identified along the expected course of the ureters. Dictated by: Dictated on workstation # [id number]
== END 2022-05-26 03:15 | disposition home or self-care (01) ==
LOC: EDUNIT# 23:37 → ER 23:40
DX: R31.9 Hematuria, unspecified (principal); Z87.442 Personal history of urinary calculi
CPT/HCPCS: 36415; 74018; 80048; 81000; 85007; 85027; 87088

== ENCOUNTER 2023-09-24 21:31 | Emergency (ER) | payer SELFPAY ==
[~2023-09-24 21:31] MED LIST changes: +ALBU8.5H6 INH; +CEPH500T PO; -RT-ALBUINH INH
[2023-09-24] MEDS ORDERED: NS IV 1000 ML 1,000 ML IV STA (21:47)
[2023-09-24] MEDS ORDERED: KETOROLAC INJ 30 MG/ML VIAL IVP ONE (22:00)
[2023-09-24] MEDS ORDERED: ONDANSETRON INJECTION 4 MG/2 ML (SDV) IVP ONE (22:15)
--- NOTE | 2023-09-24 22:20 | ED Back Pain ---
General Chief Complaint: Back Problems Stated Complaint: AB PAIN Source of Information: Patient Exam Limitations: No Limitations (DAVID PETER) History of Present Illness Date Seen by Provider: Sep 24, 2023 Time Seen by Provider: 22:19 Initial Comments Patient is a 23-year-old male who presents ED with right flank pain. Pain started on Monday. Described as sharp intermittent. Pain does not radiate. Associated vomiting. Noted dark urine. History of kidney stones in the past. States he has received a lithotripsy in the past as well. Denies of any chest pain, cough, fever, chills, burning with urination but does report frequent urination. He is concern for potential kidney stone with a dark urine and pain. Has been taking ibuprofen with some improvement. Rates pain 4 out of 10 at this time. Vomiting on arrival. (DAVID PETER) Allergies and Home Medications Allergies Coded Allergies: HERLINDAANo Known Allergies (Verified Allergy, Unknown, 03/21/06) Patient Home Medication List Home Medication List Reviewed: Yes (DAVID PETER) Cephalexin (Cephalexin) 500 Mg Tablet, 500 MG PO TID Prescribed by: STEVE SALMON on 05/26/22 0308 Hydrocodone/Acetaminophen (Hydrocodone-Acetamin 5-325 mg) 5 Mg-325 Mg Tablet, 1 TAB PO Q6H PRN for PAIN-MODERATE (5-7) Prescribed by: KRYS COLINDRES on 09/24/23 233 Ketorolac Tromethamine (Ketorolac Tromethamine) 10 Mg Tablet, 10 MG PO Q8H PRN for PAIN-MODERATE (5-7) Prescribed by: KRYS COLINDRES on 09/24/232337 Ondansetron (Ondansetron Odt) 4 Mg Tab.rapdis, 4 MG SL Q8H PRN for NAUSEA/VOMITING Prescribed by: KRYS COLINDRES on 09/24/232337 Tamsulosin HCl (Flomax) 0.4 Mg Cap, 0.4 MG PO HS Prescribed by: KRYS COLINDRES on 09/24/232337 Review of Systems Constitutional: No chills, No diaphoresis, No fever, No malaise EENTM: No hearing loss, No ear pain, No blurred vision Respiratory: No cough, No dyspnea on exertion Cardiovascular: No chest pain Gastrointestinal: No abdominal pain, No constipation, No diarrhea; nausea, vomiting Genitourinary: No decreased output, No discharge; frequency, hematuria Musculoskeletal: back pain; No joint pain Skin: No change in color, No change in hair/nails (DAVID PETER) Past Oesohvl-Swqnoh-Dstkra Hx Immunizations Up To Date Tetanus Booster (TDap): Less than 5yrs First/Initial COVID19 Vaccinat: 01/03 Second COVID19 Vaccination Lionel: 01/31 (DAVID PETER) Seasonal Allergies Seasonal Allergies: No (DAVID PETER) Past Medical History Surgery/Hospitalization HX: renal stones, LITHOTRYPSY Surgeries: Yes (lithotripsy) Respiratory: Yes Asthma Cardiac: No Neurological: No Genitourinary: Yes Kidney Stones Gastrointestinal: No Musculoskeletal: No Endocrine: No HEENT: No Cancer: No Did You Recieve Any Treatments: No Psychosocial: Yes (OCD) Integumentary: No Blood Disorders: No (DAVID PETER) Family Medical History No Pertinent Family Hx (DAVID PETER) Physical Exam Vital Signs Vital Signs - First Documented 09/24/23 21:45 Temp 36.5 Pulse 85 Resp 16 B/P (MAP) 142/88 (106) Pulse Ox 96 O2 Delivery Room Air (KRYS COLINDRES MD) Vital Signs Capillary Refill : (DAVID PETER) Height, Weight, BMI Height: 5'10.00" Weight: 260lbs. 0.0oz. [id number]; 38.00 BMI Method:Stated General Appearance: No Apparent Distress, WD/WN HEENT: PERRL/EOMI, TMs Normal, Normal ENT Inspection, Pharynx Normal Neck: Full Range of Motion, Normal Inspection, Non Tender, Supple Cardiovascular: Regular Rate, Rhythm, No Edema, No Gallop, No JVD Respiratory: Chest Non Tender, Lungs Clear, Normal Breath Sounds, No Accessory Muscle Use, No Respiratory Distress Gastrointestinal: Normal Bowel Sounds, No Organomegaly, No Pulsatile Mass, Non Tender Back: Normal Inspection, CVA Tenderness (R) Extremity: Normal Capillary Refill, Normal Inspection, Normal Range of Motion, Non Tender Neurologic/Psychiatric: Alert, Oriented x3, No Motor/Sensory Deficits, Normal 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, 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 Norm as Tested Skin: Normal Color, Warm/Dry (DAVID PETER) Progress/Results/Core Measures Results/Orders Lab Results Laboratory Tests Test 09/24/23 22:20 09/24/23 23:00 Range/Units White Blood Count 10.9 4.3-11.0 10^3/uL Red Blood Count 5.65 H 4.30-5.52 10^6/uL Hemoglobin 16.4 13.3-17.7 g/dL Hematocrit 48 40-54 % Mean Corpuscular Volume 85 80-99 fL Mean Corpuscular Hemoglobin 29 25-34 pg Mean Corpuscular Hemoglobin Concent 34 32-36 g/dL Red Cell Distribution Width 12.1 10.0-14.5 % Platelet Count 321 130-400 10^3/uL Mean Platelet Volume 9.3 9.0-12.2 fL Immature Granulocyte % (Auto) 1 % Neutrophils (%) (Auto) 58 42-75 % Lymphocytes (%) (Auto) 28 12-44 % Monocytes (%) (Auto) 10 0-12 % Eosinophils (%) (Auto) 3 0-10 % Basophils (%) (Auto) 1 0-10 % Neutrophils # (Auto) 6.3 1.8-7.8 10^3/uL Lymphocytes # (Auto) 3.1 1.0-4.0 10^3/uL Monocytes # (Auto) 1.1 H 0.0-1.0 10^3/uL Eosinophils # (Auto) 0.3 0.0-0.3 10^3/uL Basophils # (Auto) 0.1 0.0-0.1 10^3/uL Immature Granulocyte # (Auto) 0.1 0.0-0.1 10^3/uL Sodium Level 137 135-145 MMOL/L Potassium Level 3.4 L 3.6-5.0 MMOL/L Chloride Level 100 98-107 MMOL/L Carbon Dioxide Level 26 21-32 MMOL/L Anion Gap 11 5-14 MMOL/L Blood Urea Nitrogen 13 7-18 MG/DL Creatinine 1.18 0.60-1.30 MG/DL Estimat Glomerular Filtration Rate 88 BUN/Creatinine Ratio 11 Glucose Level 100 70-105 MG/DL Calcium Level 9.5 8.5-10.1 MG/DL Corrected Calcium 9.2 8.5-10.1 MG/DL Total Bilirubin 0.7 0.1-1.0 MG/DL Aspartate Amino Transf (AST/SGOT) 22 5-34 U/L Alanine Aminotransferase (ALT/SGPT) 22 0-55 U/L Alkaline Phosphatase 55 40-136 U/L Total Protein 8.2 6.4-8.2 GM/DL Albumin 4.4 3.2-4.5 GM/DL Lipase 14 8-78 U/L Urine Color ORANGE Urine Clarity CLEAR Urine pH 7.0 5-9 Urine Specific [place] 1.020 1.016-1.022 Urine Protein 2+ H NEGATIVE Urine Glucose (UA) TRACE H NEGATIVE Urine Ketones 2+ H NEGATIVE Urine Nitrite NEGATIVE NEGATIVE Urine Bilirubin 1+ H NEGATIVE Urine Urobilinogen 1.0 < = 1.0 MG/DL Urine Leukocyte Esterase NEGATIVE NEGATIVE Urine RBC (Auto) 1+ H NEGATIVE Urine RBC 5-10 H /HPF Urine WBC 0-2 /HPF Urine Squamous Epithelial Cells 0-2 /HPF Urine Crystals NONE /LPF Urine Bacteria FEW H /HPF Urine Casts NONE /LPF Urine Mucus LARGE H /LPF Urine Culture Indicated YES (KRYS COLINDRES MD) My Orders Orders - KRYS COLINDRES MD Rx-Hydrocodone/Apap 5-325 Mg (Rx-Vicodin (09/24/23 23:45) Tamsulosin Capsule (Flomax Capsule) (09/24/23 23:32) Rx-Ondansetron Po (Rx-Zofran Po) (09/24/23 23:32) (KRYS COLINDRES MD) Medications Given in ED Current Medications Medications Dose Ordered Sig/Radha Route Start Time Stop Time Status Last Admin Dose Admin Acetaminophen/ Hydrocodone Bitart 1 ea Q6H PRN PO 09/24/23 23:45 09/25/23 00:00 DC 09/24/23 23:53 1 EA Ketorolac Tromethamine 30 mg ONCE ONCE IVP 09/24/23 22:00 09/24/23 22:01 DC 09/24/23 22:20 30 MG Ondansetron HCl 4 mg ONCE ONCE IVP 09/24/23 22:15 09/24/23 22:16 DC 09/24/23 22:24 4 MG (KRYS COLINDRES MD) Vital Signs/I&O 09/24/23 09/24/23 21:45 23:59 Temp 36.5 36.5 Pulse 85 79 Resp 16 16 B/P (MAP) 142/88 (106) 129/78 Pulse Ox 96 97 O2 Delivery Room Air Room Air 09/24/23 23:59 Intake Total 1000 ml Balance 1000 ml (KRYS COLINDRES MD) Progress Progress Note : Time: 23:34 Progress Note Patient care assumed at shift change, 11 PM from CHRISTINE Rizvi. Evaluation by me today includes history and physical exam. Patient had CBC, chemistry, urinalysis and CT scan renal stone protocol. Exam findings include well- developed well-nourished obese male resting comfortably on his left side no acute distress, currently rating his pain a "3". Abdomen is soft, nontender. He has minimal CVA tenderness on the right side. Vital signs are stable. No other concerning physical exam findings. Differential diagnosis includes pyelonephritis, kidney stone Labs independently reviewed and interpreted by me. His CBC is normal. His chemistry is pertinent for slightly low potassium at 3.4. Urinalysis shows hematuria with few bacteria, nitrite negative, leukocyte Estrace negative. His CT scan independently reviewed and interpreted by me shows a large stone approximately 5 mm in the proximal right ureter. Minimal findings of stranding around the right kidney. Patient is comfortable after the Toradol, still has a little bit of nausea. As he has a history of kidney stones he is quite familiar with the natural progression of kidney stones. I recommended increasing oral h ydration, Flomax nightly, will provide some p.o. Toradol as well as hydrocodone and ondansetron for nausea. I have given the patient referral information for Dr. Jenna Ferraro, our new urologist. Return precautions provided in both verbal and written format. Patient is much improved at discharge, all questions are sought and answered. (KRYS COLINDRES MD) Diagnostic Imaging Diagonstic Imaging: CT Comments CT abdomen and pelvis renal stone protocol - large right sided renal stone ~5mm prox right ureter (KRYS COLINDRES MD) Departure Communication (PCP) Reviewed previous ER visits, H&P, lab testing. Differential diagnoses nephrolithiasis, urolithiasis, cystitis, pyelonephritis. History of kidney stones. Right-sided flank pain with vomiting. On arrival CBC, CMP, lipase urinalysis was ordered. Started on a liter of fluid was given Toradol and Zofran with improvement of pain. CT abdomen pelvis without contrast was ordered. CBC, CMP grossly unremarkable. Urinalysis currently pending. Patient was discussed with Dr. Colindres who took over care 11 PM. (DAVID PETER) Impression Primary Impression: Ureteral stone Disposition: HOME, SELF-CARE Condition: Improved Departure-Patient Inst. Decision time for Depature: 23:34 (KRYS COLINDRES MD) Referrals: JENNA BRUNO MD (PCP/Family) Primary Care Physician Joss FERRARO MD Patient Instructions: Kidney stones in adults Add. Discharge Instructions: Be sure and strain your urine every time you go to the bathroom so that you are aware of when you pass the stone. Drink lots of fluids including Gatorade, water, Pedialyte to stay well-hydrated. I have written you for prescription Toradol, 10 mg tablets 1 every 8 hours as needed for pain. Also hydrocodone 5 mg tablets, you can take 1 with 1 extra strength Tylenol every 6 hours as needed for more severe pain. Flomax 0.4 mg tablets nightly to help increase urine flow. Ondansetron 4 mg orally disintegrating tablets. 1 every 8 hours as needed for nausea. If you develop a fever, worsening pain that is not controlled by these medications please return to the emergency department for reevaluation. I have put contact information for our urologist on this paperwork. Please call for a follow-up appointment. Scripts Ondansetron (Ondansetron Odt) 4 Mg Tab.rapdis 4 MG SL Q8H PRN for NAUSEA/VOMITING, #15 TAB Prov: KRYS COLINDRES MD 09/24/23 Ketorolac Tromethamine (Ketorolac Tromethamine) 10 Mg Tablet 10 MG PO Q8H PRN for PAIN-MODERATE (5-7), #9 TAB Prov: KRYS COLINDRES MD 09/24/23 Hydrocodone/Acetaminophen (Hydrocodone-Acetamin 5-325 mg) 5 Mg-325 Mg Tablet 1 TAB PO Q6H PRN for PAIN-MODERATE (5-7), #12 TAB Prov: KRYS COLINDRES MD 09/24/23 Tamsulosin HCl (Flomax) 0.4 Mg Cap 0.4 MG PO HS for 14 Days, #14 CAP Prov: KRYS COLINDRES MD 09/24/23 Work/School Note: Work Release Form Date Seen in the Emergency Department: Sep 24, 2023 Return to Work: Sep 26, 2023 Copy Copies To 1: JENNA BRUNO MD Copies To 2: Joss FERRARO MD, ZACHARY A PA Sep 24, 2023 22:20 KRYS COLINDRES MD Sep 24, 2023 23:39
[2023-09-24 22:28] LABS: BASOPHILS # (AUTO) 0.1 10^3/uL (0.0-0.1); BASOPHILS % (AUTO) 1 % (0-10); EOSINOPHILS # (AUTO) 0.3 10^3/uL (0.0-0.3); EOSINOPHILS % (AUTO) 3 % (0-10); HEMATOCRIT 48 % (40-54); HEMOGLOBIN 16.4 g/dL (13.3-17.7); LYMPHOCYTES # (AUTO) 3.1 10^3/uL (1.0-4.0); LYMPHOCYTES % (AUTO) 28 % (12-44); MEAN CORPUSCULAR HEMOGLOBIN 29 pg (25-34); MEAN CORPUSCULAR HGB CONC 34 g/dL (32-36); MEAN CORPUSCULAR VOLUME 85 fL (80-99); MEAN PLATELET VOLUME 9.3 fL (9.0-12.2); MONOCYTES # (AUTO) 1.1 10^3/uL (0.0-1.0); MONOCYTES % (AUTO) 10 % (0-12); NEUTROPHILS # (AUTO) 6.3 10^3/uL (1.8-7.8); NEUTROPHILS % (AUTO) 58 % (42-75); PLATELET COUNT 321 10^3/uL (130-400); WHITE BLOOD COUNT 10.9 10^3/uL (4.3-11.0)
[2023-09-24 22:45] LABS: ALBUMIN 4.4 GM/DL (3.2-4.5); POTASSIUM 3.4 MMOL/L (3.6-5.0)
[2023-09-24 22:46] LABS: CALCIUM 9.5 MG/DL (8.5-10.1)
[2023-09-24 22:47] LABS: TOTAL PROTEIN 8.2 GM/DL (6.4-8.2)
[2023-09-24 22:49] LABS: BILIRUBIN,TOTAL 0.7 MG/DL (0.1-1.0)
[2023-09-24 22:51] LABS: CREATININE SERUM 1.18 MG/DL (0.60-1.30)
[2023-09-24 23:17] LABS: CLARITY,URINE CLEAR; COLOR,URINE ORANGE; GLUCOSE, URINE (UA) TRACE (NEGATIVE); KETONES,URINE 2+ (NEGATIVE); NITRITE,URINE NEGATIVE (NEGATIVE); PROTEIN,URINE 2+ (NEGATIVE)
[2023-09-24 23:18] LABS: BILIRUBIN,URINE 1+ (NEGATIVE)
[2023-09-24 23:19] LABS: BACTERIA,URINE FEW /HPF; LEUKOCYTE ESTERASE ,URINE NEGATIVE (NEGATIVE); SQUAMOUS EPITHELIAL CELL,UR 0-2 /HPF; WBC,URINE 0-2 /HPF
[2023-09-24] MEDS ORDERED: TAMSULOSIN 0.4 MG (FLOMAX) CAP PO STA (23:32)
[2023-09-24] MEDS ORDERED: RX-ONDANSETRON 4 MG ODT (ZOFRAN) PPK #4 PO STA (23:32)
[2023-09-24] MEDS ORDERED: KETO10TA PO (23:38)
[2023-09-24] MEDS ORDERED: ACHD5005 PO (23:38)
[2023-09-24] MEDS ORDERED: TMSL.4C PO (23:38)
[2023-09-24] MEDS ORDERED: ONDA4TAB11 SL (23:38)
[2023-09-24 23:59] VITALS: BP 129/78
--- NOTE | 2023-09-25 07:33 | Diagnostic Imaging Report ---
PROCEDURE: CT urinary tract, rule out kidney stone. TECHNIQUE: Multiple contiguous axial images were obtained through the abdomen and pelvis without the use of intravenous contrast. Auto Exposure Controls were utilized during the CT exam to meet ALARA standards for radiation dose reduction. INDICATION: Left flank pain. COMPARISON: CT abdomen and pelvis 08/11/2021. Abdominal radiograph 05/26/2022. FINDINGS: Lung bases are clear. Liver, gallbladder, pancreas, spleen, adrenals, bladder and appendix are negative. 0.5 cm obstructing renal stone in the right ureteropelvic junction resulting in moderate right pyelocaliectasis. Additional nonobstructing calyceal tip renal stones in both kidneys. No left hydronephrosis. No free intraperitoneal air or fluid. No lymphadenopathy. No evidence of bowel obstruction. No acute osseous findings. IMPRESSION: Obstructing 0.5 cm renal stone in the right ureteropelvic junction resulting in moderate right hydronephrosis. Additional nonobstructing calyceal tip renal stones in both kidneys. Agree with preliminary interpretation. Dictated by: Dictated on workstation # [id number]
== END 2023-09-25 | disposition home or self-care (01) ==
LOC: EDUNIT# 21:31 → ER 21:35
DX: N20.1 Calculus of ureter (principal); Z98.890 Other specified postprocedural states
CPT/HCPCS: 36415; 74176; 80053; 81000; 83690; 85025; 87088; 96361; 96374; 96375

== ENCOUNTER → 2023-10-02 | Outpatient (CLI) | payer OTHER ==
[~2023-10-02] MED LIST changes: +KETO10TA PO; +ONDA4TAB11 SL
--- NOTE | 2023-10-02 16:37 | Diagnostic Imaging Report ---
INDICATION: Right-sided flank pain. FINDINGS: There is a 4.3 mm calculus projecting over the right proximal ureter. There is a 6 mm calculus projecting over a lower pole calyx of the left kidney. IMPRESSION: Left nephrolithiasis. The previously seen right renal calculus has migrated into the proximal right ureter. Dictated by: Dictated on workstation # [id number]
== END ==
LOC: RAD 14:34
PROVIDERS: ATTEND Specialist
DX: N20.2 Calculus of kidney with calculus of ureter (principal)
CPT/HCPCS: 74018

== ENCOUNTER 2023-10-17 05:30 | Outpatient (CLI) | payer OTHER ==
[~2023-10-17] VITALS: Ht 172.7 cm; Wt 108.3 kg
[2023-10-17] MEDS ORDERED: ACET500P24 PO (14:35)
== END 2023-10-17 14:59 | disposition home or self-care (01) ==
LOC: PREOP 05:30
PROVIDERS: ATTEND Specialist
DX: Z01.818 Encounter for other preprocedural examination (principal)

== ENCOUNTER 2023-10-19 11:49 | Emergency (ER) | payer OTHER ==
[~2023-10-19] VITALS: Ht 172.7 cm; Wt 104.3 kg
[~2023-10-19 11:49] MED LIST changes: +ACET500P24 PO
[2023-10-19] MEDS ORDERED: fentaNYL INJECTION 100 MCG/2 ML VIAL IVP STA (12:31)
--- NOTE | 2023-10-19 12:36 | ED GU-Male ---
General Chief Complaint: - Reproductive Stated Complaint: KIDNEY STONES | SURGERY SCHEDULED FOR 10/24/23 Source: patient Exam Limitations: no limitations History of Present Illness Date Seen by Provider: Oct 19, 2023 Time Seen by Provider: 12:34 Initial Comments Patient is a 23-year-old male with a history of kidney stones who presents ED for left flank pain left lower quad abdominal pain. This started last night described as sharp radiating to the left lower quadrant. Patient reports vomiting. Reports frequent urination dark urine without any pain with urination. Currently on hydrocodone, ketorolac and Flomax. Scheduled for lithotripsy by Dr. Baird on October 24. Patient denies any fever, chills, ches t pain, shortness of breath or cough. Patient rates pain 8 out of 10. Patient is having difficulty getting pain in her control. Allergies and Home Medications Allergies Coded Allergies: Liz Known Allergies (Verified Allergy, Unknown, 03/21/06) Patient Home Medication List Home Medication List Reviewed: Yes Acetaminophen (Tylenol Extra Strength) 500 Mg Powd.pack, 500 MG PO, (Reported) Entered as Reported by: Jane Ayala on 10/17/23 1435 Cephalexin (Cephalexin) 500 Mg Tablet, 500 MG PO TID Prescribed by: STEVE SALMON on 05/26/22 0308 Cephalexin (Cephalexin) 500 Mg Tablet, 500 MG PO TID Prescribed by: CHRISTINE MORALES on 10/19/23 1441 Hydrocodone/Acetaminophen (Hydrocodone-Acetamin 5-325 mg) 5 Mg-325 Mg Tablet, 1 TAB PO Q6H PRN for PAIN-MODERATE (5-7) Prescribed by: KRYS COLINDRES on 09/24/23 2339 Ketorolac Tromethamine (Ketorolac Tromethamine) 10 Mg Tablet, 10 MG PO Q8H PRN for PAIN-MODERATE (5-7) Prescribed by: KRYS COLINDRES on 09/24/23 233 Ondansetron (Ondansetron Odt) 4 Mg Tab.rapdis, 4 MG SL Q8H PRN for NAUSEA/VOMITING Prescribed by: KRYS COLINDRES on 09/24/23 233 Ondansetron (Ondansetron Odt) 4 Mg Tab.rapdis, 4 MG SL Q4H PRN for NAUSEA/VOMITING Prescribed by: CHRISTINE MORALES on 10/19/23 1438 Oxycodone HCl/Acetaminophen (Oxycodone-Acetaminophen 5-325) 5 Mg-325 Mg Tablet, 1 EACH PO Q4H PRN for PAIN-SEVERE Prescribed by: CHRISTINE MORALES on 10/19/23 1439 Tamsulosin HCl (Flomax) 0.4 Mg Cap, 0.4 MG PO HS Prescribed by: KRYS COLINDRES on 09/24/23 2338 Review of Systems Review of Systems Constitutional: No chills, No diaphoresis EENTM: No ear pain, No blurred vision, No double vision, No vision loss, No mouth pain, No mouth swelling, No throat pain, No throat swelling Respiratory: No cough, No dyspnea on exertion Cardiovascular: No chest pain, No edema Gastrointestinal: abdominal pain; No diarrhea; nausea, vomiting Genitourinary: denies burning, denies discharge, denies dysuria; frequency Musculoskeletal: back pain; No joint pain Skin: No change in color, No change in hair/nails All Other Systemes Reviewed Negative Unless Noted: Yes Past Dqgrpsx-Eatvog-Uchaju Hx Patient Social History Tobacco Use?: Yes Tobacco type used: Cigarettes Smoking Status: Current Everyday Smoker Use of E-Cig and/or Vaping dev: No Substance use?: No Alcohol Use?: No Pt feels they are or have been: No Immunizations Up To Date Tetanus Booster (TDap): Less than 5yrs First/Initial COVID19 Vaccinat: 01/03 Second COVID19 Vaccination Lionel: 01/31 Third COVID19 Vaccination Date: 01/03 Seasonal Allergies Seasonal Allergies: No Past Medical History Surgery/Hospitalization HX: renal stones, LITHOTRYPSY Surgeries: Yes (lithotripsy) Respiratory: Yes Asthma Currently Using CPAP: No Cardiac: No Neurological: No Genitourinary: Yes Kidney Stones Gastrointestinal: No Musculoskeletal: No Endocrine: No HEENT: No Cancer: No Did You Recieve Any Treatments: No Psychosocial: Yes (OCD) Integumentary: No Blood Disorders: No Family Medical History No Pertinent Family Hx Physical Exam Vital Signs Vital Signs - First Documented 10/19/23 12:25 Pulse 64 Resp 17 B/P (MAP) 151/112 (125) Pulse Ox 98 O2 Delivery Room Air Capillary Refill : Height, Weight, BMI Height: 5'10.00" Weight: 260lbs. 0.0oz. 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 as tested, no motor/sensory deficits, alert, normal mood/affect, oriented x 3 Skin: normal color, warm/dry Lymphatic: no adenopathy Progress/Results/Core Measures Suspected Sepsis SIRS Temperature: Pulse: Respiratory Rate: Laboratory Tests 10/19/23 12:45: White Blood Count 8.9 Blood Pressure / Mean: Laboratory Tests 10/19/23 12:45: Creatinine 1.08, Platelet Count 237, Total Bilirubin 0.3 Results/Orders Lab Results Laboratory Tests Test 10/19/23 12:45 10/19/23 12:52 Range/Units White Blood Count 8.9 4.3-11.0 10^3/uL Red Blood Count 5.05 4.30-5.52 10^6/uL Hemoglobin 14.6 13.3-17.7 g/dL Hematocrit 43 40-54 % Mean Corpuscular Volume 84 80-99 fL Mean Corpuscular Hemoglobin 29 25-34 pg Mean Corpuscular Hemoglobin Concent 34 32-36 g/dL Red Cell Distribution Width 12.3 10.0-14.5 % Platelet Count 237 130-400 10^3/uL Mean Platelet Volume 9.7 9.0-12.2 fL Immature Granulocyte % (Auto) 0 % Neutrophils (%) (Auto) 58 42-75 % Lymphocytes (%) (Auto) 32 12-44 % Monocytes (%) (Auto) 7 0-12 % Eosinophils (%) (Auto) 3 0-10 % Basophils (%) (Auto) 1 0-10 % Neutrophils # (Auto) 5.2 1.8-7.8 10^3/uL Lymphocytes # (Auto) 2.8 1.0-4.0 10^3/uL Monocytes # (Auto) 0.6 0.0-1.0 10^3/uL Eosinophils # (Auto) 0.3 0.0-0.3 10^3/uL Basophils # (Auto) 0.1 0.0-0.1 10^3/uL Immature Granulocyte # (Auto) 0.0 0.0-0.1 10^3/uL Sodium Level 138 135-145 MMOL/L Potassium Level 3.7 3.6-5.0 MMOL/L Chloride Level 106 98-107 MMOL/L Carbon Dioxide Level 20 L 21-32 MMOL/L Anion Gap 12 5-14 MMOL/L Blood Urea Nitrogen 14 7-18 MG/DL Creatinine 1.08 0.60-1.30 MG/DL Estimat Glomerular Filtration Rate 98 BUN/Creatinine Ratio 13 Glucose Level 98 70-105 MG/DL Calcium Level 8.9 8.5-10.1 MG/DL Corrected Calcium 8.8 8.5-10.1 MG/DL Total Bilirubin 0.3 0.1-1.0 MG/DL Aspartate Amino Transf (AST/SGOT) 17 5-34 U/L Alanine Aminotransferase (ALT/SGPT) 22 0-55 U/L Alkaline Phosphatase 53 40-136 U/L Total Protein 7.2 6.4-8.2 GM/DL Albumin 4.1 3.2-4.5 GM/DL Lipase 54 8-78 U/L Urine Color YELLOW Urine Clarity CLEAR Urine pH 5.5 5-9 Urine Specific [place] 1.020 1.016-1.022 Urine Protein 2+ H NEGATIVE Urine Glucose (UA) NEGATIVE NEGATIVE Urine Ketones NEGATIVE NEGATIVE Urine Nitrite NEGATIVE NEGATIVE Urine Bilirubin 1+ H NEGATIVE Urine Urobilinogen 0.2 < = 1.0 MG/DL Urine Leukocyte Esterase 1+ H NEGATIVE Urine RBC (Auto) 3+ H NEGATIVE Urine RBC >100 H /HPF Urine WBC 10-25 H /HPF Urine Squamous Epithelial Cells RARE /HPF Urine Crystals NONE /LPF Urine Bacteria TRACE /HPF Urine Casts NONE /LPF Urine Mucus SMALL H /LPF Urine Culture Indicated YES My Orders Orders - DAVID PETER Ua Culture If Indicated (10/19/23 12:31) Cbc And Automated Diff (10/19/23 12:31) Comprehensive Metabolic Panel (10/19/23 12:31) Lipase (10/19/23 12:31) Abdomen/Kub 1view (10/19/23 12:31) Ketorolac Injection (Ketorolac Injection (10/19/23 12:45) Fentanyl Injection (Fentanyl Injection (10/19/23 12:31) Ns Iv 1000 Ml (Ns Iv 1000 Ml) (10/19/23 12:45) Urine Culture (10/19/23 12:52) Fentanyl Injection (Fentanyl Injection (10/19/23 14:15) Medications Given in ED Current Medications Medications Dose Ordered Sig/Radha Route Start Time Stop Time Status Last Admin Dose Admin Fentanyl Citrate 50 mcg ONCE ONCE IVP 10/19/23 14:15 10/19/23 14:16 DC 10/19/23 14:25 50 MCG Ketorolac Tromethamine 30 mg ONCE ONCE IVP 10/19/23 12:45 10/19/23 12:46 DC 10/19/23 12:43 30 MG Vital Signs/I&O 10/19/23 10/19/23 12:25 15:01 Pulse 64 64 Resp 17 17 B/P (MAP) 151/112 (125) 148/99 Pulse Ox 98 98 O2 Delivery Room Air Room Air Capillary Refill : Departure Communication (PCP) Reviewed previous ER visits, H&P, lab testing. Currently being managed by Dr. Ferraro urology for kidney stones. Scheduled for lithotripsy October 24. Patient developed left flank pain with radiation left lower quadrant pain last night with vomiting. No fever chills body aches. Does have hydrocodone, Flomax, and ketorolac at home which he has been taken.` He states the pain medication has been managing his pain on the right side. Obtained a abdominal x-ray CBC, CMP, urinalysis. Started on liter fluid given ketorolac and fentanyl with some improvement of pain to a 1 on the pain scale. KUB on October 02 that shows a 4.3 mm calculus projecting over the right proximal ureter and a 6 mm calculus projecting over the lower pole calculus of the left kidney. Patient afebrile with stable vital signs. CBC, CMP grossly unremarkable. Normal kidney function. Urinalysis does note some white blood cells 10-20, leukocytes and red blood cells over 100. KUB shows a 5 mm calculus on the right appears to have migrated slightly more distally. Larger 6 mm calculus on the left also appears slightly more medial when compared to the prior exam. Raises suspicious for possible UPJ. Patient was discussed with Dr. Ferraro urologist. At this time re commended no further treatment however discussed switching to oxycodone. Zofran for nausea. I did discuss the white blood cells in the urine but does not want to proceed with anything further at this time. Continue with appointment on Monday as long as pain is controlled as it was controlled after a second dose of fentanyl. Continue with Flomax. Will discharge with Zofran and Keflex prophylactically for potential infection. Switch hydrocodone to oxycodone. If any worsening pain, fever vomiting patient needs return back to ED. Impression Primary Impression: Nephrolithiasis Disposition: HOME, SELF-CARE Condition: Stable Departure-Patient Inst. Decision time for Depature: 14:38 Referrals: JENNA BRUNO MD (PCP/Family) Primary Care Physician Joss FERRARO MD Patient Instructions: Kidney stones in adults Add. Discharge Instructions: If any worsening pain fever vomiting chills body aches return back to ED. Follo w-up your appointment on Monday. Take oxycodone for pain. Do not take with hydrocodone. Take Zofran for nausea. All discharge instructions reviewed with patient and/or family. Voiced understanding. Scripts Cephalexin (Cephalexin) 500 Mg Tablet 500 MG PO TID for 7 Days, #21 TAB Prov: DAVID PETER 10/19/23 Oxycodone HCl/Acetaminophen (Oxycodone-Acetaminophen 5-325) 5 Mg-325 Mg Tablet 1 EACH PO Q4H PRN for PAIN-SEVERE MDD 6, #8 TAB Prov: DAVID PETER 10/19/23 Ondansetron (Ondansetron Odt) 4 Mg Tab.rapdis 4 MG SL Q4H PRN for NAUSEA/VOMITING, #8 TAB Prov: DAVID PETER 10/19/23 Work/School Note: Work Release Form Date Seen in the Emergency Department: Oct 19, 2023 Return to Work: Oct 23, 2023 DAVID PETRE Oct 19, 2023 12:36
[2023-10-19] MEDS ORDERED: NS IV 1000 ML 1,000 ML IV SCH (12:45)
[2023-10-19] MEDS ORDERED: KETOROLAC INJ 30 MG/ML VIAL IVP ONE (12:45)
[2023-10-19 12:54] LABS: BASOPHILS # (AUTO) 0.1 10^3/uL (0.0-0.1); BASOPHILS % (AUTO) 1 % (0-10); EOSINOPHILS # (AUTO) 0.3 10^3/uL (0.0-0.3); EOSINOPHILS % (AUTO) 3 % (0-10); HEMATOCRIT 43 % (40-54); HEMOGLOBIN 14.6 g/dL (13.3-17.7); LYMPHOCYTES # (AUTO) 2.8 10^3/uL (1.0-4.0); LYMPHOCYTES % (AUTO) 32 % (12-44); MEAN CORPUSCULAR HEMOGLOBIN 29 pg (25-34); MEAN CORPUSCULAR HGB CONC 34 g/dL (32-36); MEAN CORPUSCULAR VOLUME 84 fL (80-99); MEAN PLATELET VOLUME 9.7 fL (9.0-12.2); MONOCYTES # (AUTO) 0.6 10^3/uL (0.0-1.0); MONOCYTES % (AUTO) 7 % (0-12); NEUTROPHILS # (AUTO) 5.2 10^3/uL (1.8-7.8); NEUTROPHILS % (AUTO) 58 % (42-75); PLATELET COUNT 237 10^3/uL (130-400); WHITE BLOOD COUNT 8.9 10^3/uL (4.3-11.0)
[2023-10-19 13:03] LABS: CLARITY,URINE CLEAR; COLOR,URINE YELLOW; GLUCOSE, URINE (UA) NEGATIVE (NEGATIVE); PH,URINE 5.5 (5-9); PROTEIN,URINE 2+ (NEGATIVE)
[2023-10-19 13:04] LABS: BACTERIA,URINE TRACE /HPF; BILIRUBIN,URINE 1+ (NEGATIVE); KETONES,URINE NEGATIVE (NEGATIVE); LEUKOCYTE ESTERASE ,URINE 1+ (NEGATIVE); NITRITE,URINE NEGATIVE (NEGATIVE); RBC,URINE >100 /HPF; SQUAMOUS EPITHELIAL CELL,UR RARE /HPF
[2023-10-19 13:10] LABS: ALBUMIN 4.1 GM/DL (3.2-4.5); BILIRUBIN,TOTAL 0.3 MG/DL (0.1-1.0); CALCIUM 8.9 MG/DL (8.5-10.1); CREATININE SERUM 1.08 MG/DL (0.60-1.30); POTASSIUM 3.7 MMOL/L (3.6-5.0); TOTAL PROTEIN 7.2 GM/DL (6.4-8.2)
--- NOTE | 2023-10-19 13:48 | Diagnostic Imaging Report ---
INDICATION: History of renal calculi. COMPARISON: 10/02/2023 FINDINGS: 2 frontal radiographic views of the abdomen were obtained. 5 mm calculus on the right appears to have migrated slightly more distally. Now projects over the level of the right L5 transverse process. The larger 6 mm calculus on the left also appears slightly more medial when compared to prior exam. This does raise concern for potential migration into the renal pelvis, possibly to the UPJ. Small bowel loops are nondilated. No unexpected radio opaque foreign bodies are seen. There is no large collection of free intraperitoneal air. IMPRESSION: 1. Bilateral collecting system calculi as above. Dictated by: Dictated on workstation # [id number]
[2023-10-19] MEDS ORDERED: fentaNYL INJECTION 100 MCG/2 ML VIAL IVP ONE (14:15)
[2023-10-19] MEDS ORDERED: ONDA4TAB11 SL (14:38)
[2023-10-19] MEDS ORDERED: OXYC1TAB11 PO (14:38)
[2023-10-19] MEDS ORDERED: CEPH500T PO (14:41)
[2023-10-19 15:01] VITALS: BP 148/99
[2023-10-24] MEDS ORDERED: CEPH500T PO (11:51)
[2023-10-24] MEDS ORDERED: OXYC1TAB11 PO (11:51)
[2023-10-24] MEDS ORDERED: KETO10TA PO (11:51)
== END 2023-10-19 15:01 | disposition home or self-care (01) ==
LOC: EDUNIT# 11:49 → ER 11:52
DX: N20.2 Calculus of kidney with calculus of ureter (principal); F17.210 Nicotine dependence, cigarettes, uncomplicated; Z98.890 Other specified postprocedural states
CPT/HCPCS: 36415; 74018; 80053; 81000; 83690; 85025; 87088; 96361; 96374; 96375; 96376